=== PATIENT | male | born 1970 | race Caucasian/White ===

== ENCOUNTER 2017-01-28 23:00 | Inpatient (IN) | payer BC, OTHER ==
[~2017-01-28] VITALS: Ht 188 cm; Wt 133.5 kg
[~2017-01-28 23:00] MED LIST: AMOX400S3 PO; ASCAUNK PO; FISHOIL PO; LRTUDL15 PO; ROSU5TAB PO
[2017-01-28] MEDS ORDERED: SODIUM CHLORIDE 0.9% 1000ML 1,000 ML IV STA (23:29)
[2017-01-28] MEDS ORDERED: ONDANSETRON INJ 2 MG/ML 2 ML VIAL IV STA (23:29)
[2017-01-28] MEDS ORDERED: MoRPHine SULFATE 4 MG/ML 1 ML CARP\\VIAL IV STA (23:29)
[2017-01-28] MEDS ORDERED: SODIUM CHLORIDE 0.9% 500ML 500 ML IV STA (23:29)
[2017-01-28] MEDS ORDERED: ALUMINUM/MAGNESIUM SUSP 30 ML UDC PO STA (23:34)
[2017-01-28] MEDS ORDERED: LIDOCAINE HCL 2% VISC SOLN 20 ML UDC PO STA (23:34)
[2017-01-29] VITALS (19 sets, daily range): BP systolic 108–163; BP diastolic 72–92; PULSE 73–95; TEMP 36.4–37.1; O2SAT 95–98; Ht 188 cm; Wt 133.5 kg
[2017-01-29] MEDS ORDERED: ASCO500T16 PO (00:15)
[2017-01-29] MEDS ORDERED: DOXY100C76 PO (00:16)
[2017-01-29 00:30] LABS: BASO % 0.2 %; BASO ABS # 0.02 K/uL (0-0.2); COMPLETE YES; EOS % 1.7 %; HEMATOCRIT 46.4 % (42-52); IG% 0.1 %; LYMPH % 22.1 %; MEAN CELL VOLUME 85.3 fL (80-100); MEAN CORPUSCULAR HGB CONC 34.1 g/dl (32-36); MEAN PLATELET VOLUME 9.6 fL (7.4-10.4); MONO % 5.4 %; NEUT % 70.5 %; PLATELET COUNT 317 K/uL (130-400); RED BLOOD COUNT 5.44 M/uL (4.7-6.1); WHITE BLOOD COUNT 9.96 K/uL (4.8-10.8)
[2017-01-29 00:39] LABS: ALT/SGPT 52 U/L (12-78); AST/SGOT 15 U/L (15-37); BLOOD UREA NITROGEN 10 mg/dl (7-18); CARBON DIOXIDE 26 mmol/L (21-32); CHLORIDE 107 mmol/L (98-107); CREATININE 0.87 mg/dl (0.60-1.40); GLUCOSE 94 mg/dl (70-99); POTASSIUM 3.8 mmol/L (3.5-5.1); SODIUM 138 mmol/L (136-145)
[2017-01-29 00:51] LABS: ALKALINE PHOSPHATASE 74 U/L (45-117)
[2017-01-29] MEDS ORDERED: SODIUM CHLORIDE 0.9% 1000ML 1,000 ML IV STA (01:57)
[2017-01-29] MEDS ORDERED: OPTIRAY 320 IV PRN (02:15)
[2017-01-29] MEDS ORDERED: NITROGLYCERIN 0.4 MG SL PER TAB CHARGE SL STA (03:06)
[2017-01-29] MEDS ORDERED: ASPIRIN 81 MG CHEW PO STA (03:06)
--- NOTE | 2017-01-29 03:20 | History and Physical ---
History & Physical Date & Time of Service: Jan 29, 2017 at 03:20 Chief Complaint: Chest, Back Pain, Gas (Gallbladder Attack??) Primary Care Physician: Keily Marks M.D. (MEDICAL) History of Present Illness Source: patient This is a 46 yo male with medical hx of obesity , THEODORA ( not on CPAP after reconstructive palatal surgery ) , very significant family hx of premature CAD ( father at age 54 , mother had NE at age 56 , in 2010 due to NE / Cardiac arrest , sister had NE s/p PTCA at age 44 ) presents to ED with complain of rt upper quadrant pain radiation to back - symptom associated with food intake pt mentions of having these attacks on and off usually followed by eating fat or greasy food , no nausea gets abdominal pain and bloating , no SOB working , exercise makes symptom better this afternoon he ate [employer]ips -started to experience similar pain , worked in garden for sometime which seems to make him feel better around 10 pm continued to have discomfort , pain and bloating his Sister had similar symptom of indigestion while she was diagnosed of CAD requiring stent pt decided to come to ED for evaluation in the no improvement of symptom with SL nitro IV morphine helped to ease up rt upper quadrant pain lab work in unremarkable including liver function test CTA of chest negative for PE Gall bladder USG -prelim report -no evidence of stone or pericholecystic fluid Social History Smoking Status: Never Smoker Occupational Status: employed Immunizations History of Influenza Vaccine: No History of Tetanus Vaccine?: Yes Tetanus Immunization Date: Apr 23, 2011 History of Pneumococcal: No History of Hepatitis B Vaccine: No Allergies Coded Allergies: No Known Allergies (Unverified , 11/08/11) Home Medications Scheduled Ascorbic Acid (Ascorbic Acid), 1,000 MG PO 3XWK Doxycycline Monohydrate (Monodox), 100 MG PO DAILY Review of Systems Constitutional: No fever, No chills, No sweats, No weight loss, No weakness, No fatigue, No problem reported Respiratory: No cough, No sputum, No wheezing, No shortness of breath, No dyspnea on exertion, No dyspnea at rest, No hemoptysis, No problem reported Cardiovascular: No chest pain, No orthopnea, No PND, No edema, No claudication , No palpitations, No problem reported Abdomen: + problem reported (rt upper quadrant pain worse after eating ) Physical Exam Vital Signs Date Time Temp Pulse Resp B/P (MAP) Pulse Ox O2 Delivery O2 Flow Rate FiO2 01/29/17 02:30 79 18 149/96 95 Room Air 01/29/17 02:05 105 18 134/89 95 Room Air 01/29/17 01:11 87 18 138/86 99 Room Air 01/29/17 01:04 89 01/29/17 00:11 87 18 140/97 95 Room Air 01/28/17 23:42 95 Room Air 01/28/17 23:42 95 Room Air 01/28/17 23:16 37.1 99 18 154/104 96 Room Air General Appearance: no apparent distress Head: normocephalic Eyes: sclerae normal Neck: supple, no JVD, no carotid bruits, trachea midline Respiratory/Chest: chest non-tender, lungs clear, normal breath sounds, no respiratory distress Cardiovascular: regular rate, rhythm, no JVD Abdomen/GI: soft, + pertinent finding (rt upper quadrant dull tenderness, no rebound , not typical eng's point tenderness noted ) Extremities/Musculoskelatal: no calf tenderness, normal capillary refill, no pedal edema Neurologic/Psych: alert, normal mood/affect, oriented x 3 Skin: normal color, warm/dry, no rash Diagnostics Laboratory Results Results Past 24 Hours Test 01/28/17 23:47 Range/Units White Blood Count 9.96 4.8-10.8 K/uL Red Blood Count 5.44 4.7-6.1 M/uL Hemoglobin 15.8 14.0-18.0 g/dL Hematocrit 46.4 42-52 % Mean Corpuscular Volume 85.3 80-100 fL Mean Corpuscular Hemoglobin 29.0 25-34 pg Mean Corpuscular Hemoglobin Concent 34.1 32-36 g/dl Platelet Count 317 130-400 K/uL Mean Platelet Volume 9.6 7.4-10.4 fL Neutrophils (%) (Auto) 70.5 % Lymphocytes (%) (Auto) 22.1 % Monocytes (%) (Auto) 5.4 % Eosinophils (%) (Auto) 1.7 % Basophils (%) (Auto) 0.2 % Neutrophils # (Auto) 7.02 1.4-6.5 K/uL Lymphocytes # (Auto) 2.20 1.2-3.4 K/uL Monocytes # (Auto) 0.54 0.11-0.59 K/uL Eosinophils # (Auto) 0.17 0-0.5 K/uL Basophils # (Auto) 0.02 0-0.2 K/uL RDW Standard Deviation 39.5 36.4-46.3 fL RDW Coefficient of Variation 12.8 11.5-14.5 % Immature Granulocyte % (Auto) 0.1 % Immature Granulocyte # (Auto) 0.01 0.00-0.02 K/uL Sodium Level 138 136-145 mmol/L Potassium Level 3.8 3.5-5.1 mmol/L Chloride Level 107 98-107 mmol/L Carbon Dioxide Level 26 21-32 mmol/L Anion Gap 5.0 3-11 mmol/L Blood Urea Nitrogen 10 7-18 mg/dl Creatinine 0.87 0.60-1.40 mg/dl Est Creatinine Clear Calc Drug Dose 152.3 ml/min Estimated GFR () 121.7 Estimated GFR (Non- 105.0 BUN/Creatinine Ratio 12.0 10-20 Random Glucose 94 70-99 mg/dl Calcium Level 9.0 8.5-10.1 mg/dl Total Bilirubin 0.4 0.2-1 mg/dl Direct Bilirubin < 0.1 0-0.2 mg/dl Aspartate Amino Transf (AST/SGOT) 15 15-37 U/L Alanine Aminotransferase (ALT/SGPT) 52 12-78 U/L Alkaline Phosphatase 74 45-117 U/L Troponin I 0.064 0-0.045 ng/ml Total Protein 7.0 6.4-8.2 gm/dl Albumin 3.6 3.4-5.0 gm/dl Lipase 109 73-393 U/L Diagnostic Radiology CTA OF CHEST : no evidence of Pulmonary embolus , no thoracic aortic dissection or aneurysm .Dependent atelectasis, . There is subpleural pulmonary nodule with the rt upper lobe measuring up to 5 mm USG OF LIVER : The liver is mildly enlarged with increased echogenicity suggestive of hepatic steatosis , the common bile duct is wnl measuring 5.4 mm The gallbladder is unremarkable , The pancreas is within normal limit , the right kidney is unremarkable . EKG EKG normal sinus with in complete RBBB which has unchanged compared to E[facility] Impression Assessment and Plan RIGHT UPPER QUADRANT PAIN : Pt's symptom suggestive /typical of gall bladder colic pain in rt upper quadrant , brought in by fat /greasy food with radiation to back gall bladder USG -unremarkable HIDA scan ordered for AM NPO with ice chips and sips till HIDA scan MILD ELEVATION OF TROPONIN / R/O ACS : very significant family hx of premature CAD ( father at age 54 , mother had NE at age 56 , in 2010 due to NE /Cardiac arrest , sister had NE s/p PTCA at age 44 ) cardiac risk factor : family hx of CAD , obesity , hx of smoking ( quit in 2000 ) presenting symptom more suggestive of gall bladder etiology had Dobutamine cardiac stress test in 12/11/2011 -was negative for stress induced ischemia pt will be monitored in Tele serial cardiac markers /resting echo ordered empirically started on Aspirin 81 mg daily if HIDA is suggestive for cholecystis and pt needs surgery -aspirin can be discontinued HX OF THEODORA: was been follows with Sleep Medicine Dr Markham was prescribed CPAP -was not able to tolerate it well s/p reconstructive surgery -removal of tonsils /adenoids /palatal surgery by ENT Dr Nelson in 2011 not on CPAP at present FULL CODE DVT PROPHYLAXIS : low risk scd and teds ambulate DISPOSITION : expected to be discharged home when medically stable Medicine follow up with Dr Marks Level of Care Telemetry Resuscitation Status FULL RESUSCITATION VTE Prophylaxis VTE Risk Assessment Done? Y/N: Yes Risk Level: Low Given or contraindicated: T.ELatanya Stockings, SCD's Additional Copies To Keily Marks M.D. (MEDICAL)
[2017-01-29] MEDS ORDERED: MoRPHine SULFATE 4 MG/ML 1 ML CARP\\VIAL IV STA (03:24)
[2017-01-29] MEDS ORDERED: ONDANSETRON INJ 2 MG/ML 2 ML VIAL IV PRN (03:30)
[2017-01-29] MEDS ORDERED: POLYETHYLENE (MIRALAX) 17 GM PACK PO PRN (03:30)
[2017-01-29] MEDS ORDERED: NITROGLYCERIN 0.4 MG SL PER TAB CHARGE SL PRN (03:30)
[2017-01-29] MEDS ORDERED: ALUMINUM/MAGNESIUM/SIMETH (MAALOX MAX) 30 ML UDC PO PRN (03:30)
[2017-01-29] MEDS ORDERED: MAGNESIUM HYDROXIDE SUSP 30 ML UDC PO PRN (03:30)
[2017-01-29] MEDS ORDERED: ACETAMINOPHEN 325 MG TAB PO PRN (03:30)
--- NOTE | 2017-01-29 03:30 | EMERGENCY ROOM VISIT NOTE ---
History First contact with patient: 23:26 Chief Complaint: ABDOMINAL PAIN Stated Complaint: CHEST, BACK PAIN, GAS (GALLBLADDER ATTACK??) Nursing Triage Summary: pt c/o right upper abd pain "for a couple days. it's worse after I eat." denies pmh or abd surgeries. denies n/v. pt alert and oriented x4. breathing WNL. History of Present Illness The patient is a 46 year old male who presents to the Emergency Room with complaints of right-sided chest and upper abdominal pain for the past day this been intermittent for a while. Pain currently 3 out of 10. It is okay radiates to the back. Nothing makes it better or worse. Patient has extensive family history of heart disease. Patient's sister mother and father have heart disease and his parents are . No recent stress or echo. Patient denies dyspnea, tobacco use, recent travel, leg pain or swelling, vomiting, diarrhea, diaphoresis. He is tolerating by mouth fluids and food. Review of Systems See HPI for pertinent positives & negatives. A total of 10 systems reviewed and were otherwise negative. Past Medical/Surgical History Medical Problems: (1) Chest pain Corneal problem Social History Smoking Status: Never Smoker Alcohol Use: none Drug Use: none Occupation Status: employed Current/Historical Medications Scheduled Ascorbic Acid (Ascorbic Acid), 1,000 MG PO 3XWK Doxycycline Monohydrate (Monodox), 100 MG PO DAILY Allergies Coded Allergies: No Known Allergies (Unverified , 11/08/11) Physical Exam Vital Signs Date Time Temp Pulse Resp B/P (MAP) Pulse Ox O2 Delivery O2 Flow Rate FiO2 01/29/17 03:17 100 18 144/92 94 Room Air 01/29/17 03:12 106 18 150/102 96 Room Air 01/29/17 02:30 79 18 149/96 95 Room Air 01/29/17 02:05 105 18 134/89 95 Room Air 01/29/17 01:11 87 18 138/86 99 Room Air 01/29/17 01:04 89 01/29/17 00:11 87 18 140/97 95 Room Air 01/28/17 23:42 95 Room Air 01/28/17 23:42 95 Room Air 01/28/17 23:16 37.1 99 18 154/104 96 Room Air Physical Exam VITALS: Vitals are noted on the nurse's note and reviewed by myself. Vital signs hypertensive GENERAL: Pleasant male, in no acute distress, nondiaphoretic, well-developed well-nourished. SKIN: The skin was without rashes, erythema, edema, or bruising. There is no tenting of the skin. Capillary reflex less than 2 seconds. HEAD: Normocephalic atraumatic. EARS: External auditory canals clear, tympanic membranes pearly mckeon without erythema or effusion bilaterally. EYES: Pupils equal round and reactive to light and accommodation. Conjunctivae without injection, sclerae without icterus. Extraocular movements intact. NOSE: Patent, turbinates without inflammation or discharge. MOUTH: Mucous membranes moist. Pharynx without erythema or exudate. Uvula midline. Airway patent. Tongue does not deviate. NECK: Supple without nuchal rigidity. No lymphadenopathy. No thyromegaly. Cervical spine is nontender. No JVD. HEART: Regular rate and rhythm without murmurs gallops or rubs. LUNGS: Clear to auscultation bilaterally without wheezes, rales or rhonchi. No dullness to percussion. No retractions or accessory muscle use. ABDOMEN: Positive bowel sounds x 4. Normal tympanic percussion. Soft, minimally tender epigastric right upper quadrant, no CVA tenderness, without masses or organomegaly. No guarding or rebound tenderness. MUSCULOSKELETAL: No muscle atrophy, erythema, or edema noted. NEURO: Patient was alert and oriented to person place and time. Normal sensation to light and sharp touch. No focal neurological deficits. Medical Decision & Procedures Laboratory Results 01/28/17 23:47 Red Blood Count 5.44, Mean Corpuscular Volume 85.3, Mean Corpuscular Hemoglobin 29.0, Mean Corpuscular Hemoglobin Concent 34.1, Mean Platelet Volume 9.6, Neutrophils (%) (Auto) 70.5, Lymphocytes (%) (Auto) 22.1, Monocytes (%) (Auto) 5.4, Eosinophils (%) (Auto) 1.7, Basophils (%) (Auto) 0.2, Neutrophils # (Auto) 7.02, Lymphocytes # (Auto) 2.20, Monocytes # (Auto) 0.54, Eosinophils # (Auto) 0.17, Basophils # (Auto) 0.02 01/28/17 23:47 Test 01/28/17 23:47 White Blood Count 9.96 K/uL (4.8-10.8) Red Blood Count 5.44 M/uL (4.7-6.1) Hemoglobin 15.8 g/dL (14.0-18.0) Hematocrit 46.4 % (42-52) Mean Corpuscular Volume 85.3 fL (80-100) Mean Corpuscular Hemoglobin 29.0 pg (25-34) Mean Corpuscular Hemoglobin Concent 34.1 g/dl (32-36) Platelet Count 317 K/uL (130-400) Mean Platelet Volume 9.6 fL (7.4-10.4) Neutrophils (%) (Auto) 70.5 % Lymphocytes (%) (Auto) 22.1 % Monocytes (%) (Auto) 5.4 % Eosinophils (%) (Auto) 1.7 % Basophils (%) (Auto) 0.2 % Neutrophils # (Auto) 7.02 K/uL (1.4-6.5) Lymphocytes # (Auto) 2.20 K/uL (1.2-3.4) Monocytes # (Auto) 0.54 K/uL (0.11-0.59) Eosinophils # (Auto) 0.17 K/uL (0-0.5) Basophils # (Auto) 0.02 K/uL (0-0.2) RDW Standard Deviation 39.5 fL (36.4-46.3) RDW Coefficient of Variation 12.8 % (11.5-14.5) Immature Granulocyte % (Auto) 0.1 % Immature Granulocyte # (Auto) 0.01 K/uL (0.00-0.02) Anion Gap 5.0 mmol/L (3-11) Est Creatinine Clear Calc Drug Dose 152.3 ml/min Estimated GFR () 121.7 Estimated GFR (Non- 105.0 BUN/Creatinine Ratio 12.0 (10-20) Calcium Level 9.0 mg/dl (8.5-10.1) Total Bilirubin 0.4 mg/dl (0.2-1) Direct Bilirubin < 0.1 mg/dl (0-0.2) Aspartate Amino Transf (AST/SGOT) 15 U/L (15-37) Alanine Aminotransferase (ALT/SGPT) 52 U/L (12-78) Alkaline Phosphatase 74 U/L (45-117) Troponin I 0.064 ng/ml (0-0.045) Total Protein 7.0 gm/dl (6.4-8.2) Albumin 3.6 gm/dl (3.4-5.0) Lipase 109 U/L (73-393) Medications Administered Medications (Trade) Dose Ordered Sig/Meño Route Start Time Stop Time Status Last Admin Dose Admin Sodium Chloride 500 ml @ 999 mls/hr Q31M STAT IV 01/28/17 23:29 01/28/17 23:59 DC 01/29/17 00:05 999 MLS/HR Sodium Chloride 1,000 ml @ 125 mls/hr Q8H STAT IV 01/28/17 23:29 01/29/17 07:28 01/29/17 03:12 125 MLS/HR Lidocaine HCl (Viscous Lidocaine 2% Soln) 10 ml NOW STAT PO 01/28/17 23:34 01/28/17 23:35 DC 01/29/17 00:04 10 ML Al Hydroxide/Mg Hydroxide (Maalox Susp) 30 ml NOW STAT PO 01/28/17 23:34 01/28/17 23:35 DC 01/29/17 00:03 30 ML Sodium Chloride 1,000 ml @ 999 mls/hr Q1H1M STAT IV 01/29/17 01:57 01/29/17 02:57 DC 01/29/17 02:05 999 MLS/HR Aspirin (Aspirin Chew) 324 mg NOW STAT PO 01/29/17 03:06 01/29/17 03:08 DC 01/29/17 03:13 324 MG Nitroglycerin (Nitrostat Tab) 0.4 mg NOW STAT SL 01/29/17 03:06 01/29/17 03:08 DC 01/29/17 03:12 0.4 MG ED Course Prior records/ancillary studies reviewed. Triage Nursing notes reviewed. The patient's history was concerning for chest pain. Differential diagnosis: Etiologies such as cardiac ischemia, cholecystitis, aortic dissection, pulmonary embolism, pneumonia, pneumothorax, musculoskeletal, infections, pericarditis, myocarditis, esophageal rupture, gastrointestinal, as well as others were entertained. Physical examination: As above. ER treatment provided: GI cocktail, aspirin, Nitro, morphine, IV fluids On reassessment the patient felt better. Diagnostic interpretation by me: The electrocardiogram was normal sinus, normal intervals, incomplete right bundle branch block, no acute ST-T wave changes, rate of 89. Impression incomplete right bundle block interpreted by myself. Repeat EKG is unchanged The labs revealed negative troponin. No leukocytosis Imaging studies: Chest x-ray with no acute consolidation, pneumothorax or free air per my interpretation Ultrasound was negative for cholecystitis per stat radiology CTA was negative for PE per stat radiology Consultation: A consultation was placed with the hospitalist, Dr Serrano. The case was discussed and diagnostics were reviewed. The patient was evaluated in the ER for further treatment. Exam and history seem consistent with chest pain with elevated troponin. Repeat EKG was unchanged. Patient thought his symptoms are related to reflux and I did start off with a GI cocktail this did not help. Patient's been on daily doxycycline for corneal problems by the counter tender. Patient has stress test many years ago that was normal per patient. Nothing recent. He is extensive family history of heart disease. Patient had a negative CTA. Normal ultrasound. He will be evaluated by medicine for cardiac rule out. By the evaluation outlined above emergent etiologies such as aortic dissection , pulmonary embolism, pneumonia, pneumothorax, infections, pericarditis, myocarditis, gastrointestinal, as well as others were deemed relatively unlikely. The pt informed about the findings as listed above. All questions were answered and pleased with the treatment. Case reviewed with my attending Medical Decision As above Impression Primary Impression: Elevated troponin Additional Impression: Precordial chest pain Departure Information Dispostion Being Evaluated By Hospitalist Condition GOOD Referrals Keily Marks M.D. (MEDICAL) (PCP) Patient Instructions My [facility] Problem Qualifiers
[2017-01-29] MEDS ORDERED: IV FLUIDS COMPLETED PRN (04:45)
[2017-01-29] MEDS ORDERED: MoRPHine SULFATE 2 MG/ML CARP IV PRN ×2 (04:45)
[2017-01-29 06:40] LABS: CHOLESTEROL/HDL RATIO 7.4
--- NOTE | 2017-01-29 06:46 | DIAGNOSTIC IMAGING REPORT ---
CHEST ONE VIEW PORTABLE CLINICAL HISTORY: Chest pain. COMPARISON STUDY: Chest radiograph November 08, 2011. FINDINGS: Lung volumes are normal. No pneumothorax or pleural effusion is present. There is no evidence of pulmonary edema. Borderline cardiomegaly is noted. No consolidation is identified to suggest pneumonia. IMPRESSION: 1. No acute cardiopulmonary findings. 2. Borderline cardiomegaly. Electronically signed by: Oleg Urrutia M.D. 01/29/2017 6:45 AM Dictated Date/Time: 01/29/2017 6:43 AM
--- NOTE | 2017-01-29 07:03 | DIAGNOSTIC IMAGING REPORT ---
ABDOMINAL ULTRASOUND, RIGHT UPPER QUADRANT HISTORY: Right upper quadrant abdominal pain. COMPARISON: None. FINDINGS: Increased echogenicity of the liver is consistent with fatty infiltration. There is no biliary ductal dilatation. The gallbladder is normal. No gallstones are identified. The pancreatic body is normal. The head and tail are partially obscured. There is no right hydronephrosis. IMPRESSION: 1. No gallstones or biliary ductal dilatation. 2. Fatty infiltration of the liver. 3. Partially obscured pancreas. Electronically signed by: Oleg Urrutia M.D. 01/29/2017 7:01 AM Dictated Date/Time: 01/29/2017 7:00 AM
--- NOTE | 2017-01-29 07:18 | DIAGNOSTIC IMAGING REPORT ---
(CHEST FOR PE) ANGIO WITH CT DOSE: 770.66 mGy.cm HISTORY: 46 years-old Male presents with acute chest pain and shortness of breath TECHNIQUE: Multiple CTA images of the chest were obtained after the intravenous administration of 92 ml Optiray 320. Coronal and sagittal MIPS were obtained from the axial data set and were submitted for review. A dose lowering technique was utilized adhering to the principles of ALARA. COMPARISON: Portable chest radiograph 01/28/2017. FINDINGS: CTA: There is adequate opacification of the pulmonary arteries to the level of the segmental branches without convincing evidence of acute pulmonary embolism. Subsegmental branches are somewhat sub-visualized secondary to contrast bolus timing. Thoracic aorta is normal in course and caliber without dissection or aneurysm. CT CHEST: No dominant thyroid nodule is seen. No pathologically adenopathy by CT size criteria. There is no pneumothorax, pleural effusion or focal airspace consolidation. 5 mm noncalcified pulmonary nodule abuts the pleura within the superior segment lingula (image 64 of the lung windows series). 6 mm pleural-based noncalcified pulmonary nodule involves the superior segment left lower lobe (seen on image 72 of the lung windows series). 6 mm noncalcified pleural-based pulmonary nodule involves the superior segment right lower lobe and lateral segment right middle lobe. Additional smaller noncalcified nodules are also present. Central airways are patent. There is mild dependent bibasilar atelectasis. Fatty infiltration of the liver is incidentally noted. There is mild bilateral symmetric gynecomastia. The osseous structures appear intact. Multilevel endplate spurring is seen throughout the spine. IMPRESSION: 1. No acute cardiopulmonary process, specifically no acute aortic pathology or evidence of pulmonary thromboembolic disease. 2. Scattered noncalcified pulmonary nodules in the bilateral lungs, most of which are pleural-based are seen measuring up to 6 mm as above. Appropriate follow-up according to the guidelines below recommended. 3. Fatty infiltration of the liver incidentally noted. Please refer to below summary of Fleischner criteria recommendations for follow-up of incidental CT nodules (Marimar Cerna, Guidelines for management of small pulmonary nodules detected on CT scans: A statement from the Fleischner Society, Radiology 237: [phone].) SOLID NODULES Multiple nodules size: <6 mm * Low risk patients: no routine follow-up * high risk patients: optional CT at 12 months Multiple nodules size: 6-8 mm * Low risk patients: follow-up at 3-6 months, then consider further follow-up at 18-24 months * high risk patients: follow-up at 3-6 months, then at 18-24 months if no change Note: newly detected indeterminate nodule in persons 35 years of age or older. * Low risk patients: minimal or absent history of smoking and/or other known risk factors * high risk patients: history of smoking or of other known risk factors (e.g. first degree relative with lung cancer, or exposure to asbestos, radon, uranium) * if a nodule up to 8 mm is partly solid or is ground glass further follow-up is required after 24 months to exclude possible slow growing adenocarcinoma (TAM) The above report was generated using voice recognition software. It may contain grammatical, syntax or spelling errors. Electronically signed by: Kody Trujillo M.D. 01/29/2017 7:16 AM Dictated Date/Time: 01/29/2017 7:08 AM
[2017-01-29] MEDS: ASPIRIN 81 MG ECTAB PO SCH (08:48)
[2017-01-29] MEDS ORDERED: PERFLUTREN LIPID MICROSPHERE (DEFINITY) IV ONE (10:04)
--- NOTE | 2017-01-29 10:26 | Progress Note ---
Subjective Date of Service: Jan 29, 2017. Subjective Pt evaluation today including: conversation w/ patient, physical exam, lab review, review of studies, review of inpatient medication list Saw/examined the patient in room 239 Doing well, no problems/issues to note Pain subsided States the pain was in the RUQ radiating the back, usually after eating certain foods No shortness of breath; no fevers/chills, no palpitations Problem List Medical Problems: (1) Elevated troponin Status: Acute (2) Precordial chest pain Status: Acute Review of Systems Constitutional: No fever, No chills Respiratory: No cough, No sputum, No shortness of breath Cardiac: No chest pain, No edema, No palpitations Abdomen: + pain (RUQ pain), No nausea, No vomiting, No diarrhea, No constipation, No GI bleeding Male : No dysuria, No urinary frequency Heme: No abnormal bleeding/bruising Medications Current Inpatient Medications Medications (Trade) Dose Ordered Sig/Meño Route Start Time Stop Time Status Last Admin Dose Admin Ioversol (Optiray 320) 100 ml UD PRN IV 01/29/17 02:15 02/02/17 02:14 Acetaminophen (Tylenol Tab) 650 mg Q4H PRN PO 01/29/17 03:30 02/28/17 03:29 Al Hydrox/Mg Hydrox/Simethicone (Maalox Max Susp) 15 ml Q4H PRN PO 01/29/17 03:30 02/28/17 03:29 Magnesium Hydroxide (Milk Of Magnesia Susp) 30 ml Q12H PRN PO 01/29/17 03:30 02/28/17 03:29 Ondansetron HCl (Zofran Inj) 4 mg Q6H PRN IV 01/29/17 03:30 02/28/17 03:29 Nitroglycerin (Nitrostat Tab) 0.4 mg UD PRN SL 01/29/17 03:30 02/28/17 03:29 Aspirin (Ecotrin Tab) 81 mg QAM PO 01/29/17 09:00 02/28/17 08:59 Polyethylene (Miralax Powder Packet) 17 gm DAILY PRN PO 01/29/17 03:30 02/28/17 03:29 Miscellaneous (Iv Fluids Completed) 1 ea PRN PRN N/A 01/29/17 04:45 01/29/18 04:44 Morphine Sulfate (MoRPHine SULFATE INJ) 1 mg Q4 PRN IV 01/29/17 04:45 02/12/17 04:44 Morphine Sulfate (MoRPHine SULFATE INJ) 2 mg Q4 PRN IV 01/29/17 04:45 02/12/17 04:44 Objective Vital Signs Date Time Temp Pulse Resp B/P (MAP) Pulse Ox O2 Delivery O2 Flow Rate FiO2 01/29/17 08:00 96 Room Air 01/29/17 07:24 37.1 86 18 143/90 (107) 97 Room Air 01/29/17 04:09 36.9 92 18 128/76 95 Room Air 01/29/17 03:55 91 18 132/84 96 01/29/17 03:17 100 18 144/92 94 Room Air 01/29/17 03:12 106 18 150/102 96 Room Air 01/29/17 02:30 79 18 149/96 95 Room Air 01/29/17 02:05 105 18 134/89 95 Room Air 01/29/17 01:11 87 18 138/86 99 Room Air 01/29/17 01:04 89 01/29/17 00:11 87 18 140/97 95 Room Air 01/28/17 23:42 95 Room Air 01/28/17 23:42 95 Room Air 01/28/17 23:16 37.1 99 18 154/104 96 Room Air Physical Exam General Appearance: no apparent distress, + obese Respiratory/Chest: chest non-tender, lungs clear, normal breath sounds, no respiratory distress, no accessory muscle use Cardiovascular: regular rate, rhythm, no edema, no murmur Abdomen: normal bowel sounds, non tender, soft Extremities: normal inspection, no pedal edema Laboratory Results Last 24 Hours Test 01/28/17 23:47 01/29/17 05:46 01/29/17 09:18 01/29/17 09:36 White Blood Count 9.96 K/uL Red Blood Count 5.44 M/uL Hemoglobin 15.8 g/dL Hematocrit 46.4 % Mean Corpuscular Volume 85.3 fL Mean Corpuscular Hemoglobin 29.0 pg Mean Corpuscular Hemoglobin Concent 34.1 g/dl Platelet Count 317 K/uL Mean Platelet Volume 9.6 fL Neutrophils (%) (Auto) 70.5 % Lymphocytes (%) (Auto) 22.1 % Monocytes (%) (Auto) 5.4 % Eosinophils (%) (Auto) 1.7 % Basophils (%) (Auto) 0.2 % Neutrophils # (Auto) 7.02 K/uL Lymphocytes # (Auto) 2.20 K/uL Monocytes # (Auto) 0.54 K/uL Eosinophils # (Auto) 0.17 K/uL Basophils # (Auto) 0.02 K/uL RDW Standard Deviation 39.5 fL RDW Coefficient of Variation 12.8 % Immature Granulocyte % (Auto) 0.1 % Immature Granulocyte # (Auto) 0.01 K/uL Sodium Level 138 mmol/L Potassium Level 3.8 mmol/L Chloride Level 107 mmol/L Carbon Dioxide Level 26 mmol/L Anion Gap 5.0 mmol/L Blood Urea Nitrogen 10 mg/dl Creatinine 0.87 mg/dl Est Creatinine Clear Calc Drug Dose 152.3 ml/min Estimated GFR () 121.7 Estimated GFR (Non- 105.0 BUN/Creatinine Ratio 12.0 Random Glucose 94 mg/dl Calcium Level 9.0 mg/dl Total Bilirubin 0.4 mg/dl Direct Bilirubin < 0.1 mg/dl Aspartate Amino Transf (AST/SGOT) 15 U/L Alanine Aminotransferase (ALT/SGPT) 52 U/L Alkaline Phosphatase 74 U/L Troponin I 0.064 ng/ml Total Protein 7.0 gm/dl Albumin 3.6 gm/dl Lipase 109 U/L Triglycerides Level 194 mg/dl Cholesterol Level 178 mg/dl HDL Cholesterol 24 mg/dl LDL Cholesterol, Calculated 115 mg/dl VLDL Cholesterol, Calculated 39 mg/dl Cholesterol/HDL Ratio 7.4 Creatine Kinase MB Ratio Assessment and Plan This is a 46 year old obese male with no significant PMH presents with RUQ abdominal pain vs. lower chest pain RUQ abdominal pain Chest Pain r/o ACS possibly related to gallbladder disease? pain is worse with certain fatty foods RUQ unremarkable will obtain a HIDA scan r/o ACS due to possible chest pain echo results pending initial cardiac enzyme mild bump noted at 0.064, two sets pending risk factors include obesity and family history likely outpatient stress DVT ppx ambulation FULL CODE
[2017-01-29 10:30] LABS: CKMB/CK RATIO 10.1 (0-3.0)
[2017-01-29] MEDS ORDERED: HEPARIN 25,000 UNIT/500ML D5W 500 ML IV PRN (11:15)
[2017-01-29] MEDS ORDERED: HEPARIN IV BOLUS 8,000 UNIT in SYRINGE 0 ML IV ONE (11:15)
[2017-01-29] MEDS ORDERED: FENTANYL CITRATE INJ 50 MCG/1 ML 2 ML VIAL ONE ×2 (11:27→13:12)
[2017-01-29] MEDS ORDERED: HEPARIN SOD (PORCINE) 1000 UNIT/ML 10 ML VIAL ONE ×2 (11:27→13:41)
[2017-01-29] MEDS ORDERED: NiCARDipine HCL INJ 2.5 MG/ML 10 ML AMP ONE (11:27)
[2017-01-29] MEDS ORDERED: MIDAZOLAM HCL 1 MG/ML 2ML VIAL ONE ×2 (11:27→12:40)
[2017-01-29] MEDS ORDERED: NITROGLYCERIN/D5W 100MCG/ML 20ML SYR ONE (11:28)
--- NOTE | 2017-01-29 11:59 | CARDIOLOGY CONSULTATION ---
DATE OF CONSULTATION: 01/29/2017 DATE OF CONSULTATION: 01/29/2017 REFERRING PHYSICIAN: Dr. Randy Berry. REASON FOR CONSULTATION: NSTEMI, nonsustained ventricular tachycardia. HISTORY OF PRESENT ILLNESS: Mr. Becerra is a 46-year-old gentleman who presented to the Emergency Department with chest discomfort. The patient had his first episode of chest discomfort on Thursday. The pain was mild and short lived at that time. The pain is primarily right-sided and described as a dull ache. Worse severity was 3/10. Reports recurrent episode of atrial fibrillation last night after dinner. He went out to his yard and did some work. States the pain slowly resolved. He went to sleep and noted recurrent right-sided chest discomfort and generalized feeling of being uncomfortable. No associated shortness of breath or diaphoresis. No nausea or vomiting. He came to the Emergency Department for further evaluation approximately 11:00 p.m. His initial troponin was 0.064, repeat troponin performed at 9:00 a.m. was 1.420 with an elevated CK-MB of 21.5. Telemetry demonstrated a 4 beat diane of nonsustained ventricular tachycardia as well as a brief 5 beat run of accelerated idioventricular rhythm. The patient was asymptomatic during these dysrhythmias. No lightheadedness, dizziness, syncope or near syncope. The patient was seen and examined at the bedside. He is currently comfortable. He received 1 sublingual nitroglycerin and his pain decreased from 1/10 down to 0/10. A resting 2D transthoracic echo was reviewed. The preliminary findings suggest posterior lateral hypokinesis. The patient reports a significant family history of premature coronary disease as listed below. Offers no other complaints currently. REVIEW OF SYSTEMS: The pertinent positive noted above, a comprehensive 10-system review is otherwise negative. PAST MEDICAL HISTORY: 1. Chronic ocular keratitis. 2. Denies history of hypertension, dyslipidemia, coronary disease, rheumatic fever as a child, or diabetes. PAST SURGICAL HISTORY: Denied. FAMILY HISTORY: Sister with coronary disease in her 40s, father with premature CAD as well. ECG ON ADMISSION: Normal sinus rhythm with an incomplete right bundle branch block, no ischemic changes. Repeat ECG performed at the bedside this morning is unchanged. CTA of the chest was performed at 1:57 a.m. demonstrating no aortic pathology or pulmonary thromboembolic disease, pulmonary nodules noted, fatty liver infiltration. Chest x-ray demonstrates no acute cardiopulmonary findings or borderline cardiomegaly. Ultrasound of the gallbladder demonstrates no gallstones or biliary duct dilatation. LABORATORY DATA: Initial troponin 0.064, repeat troponin 1.420. Sodium 138, potassium 3.8, chloride 107, CO2 is 26, BUN is 10, creatinine is 0.87. AST is 15, ALT is 52. Triglycerides 194, total cholesterol 178, LDL 115, HDL 24, lipase 109. White blood cell count 9.96, hemoglobin is 15.8, platelet count is 317. PHYSICAL EXAMINATION: VITAL SIGNS: Temperature is 37.1 degrees centigrade, pulse 86 beats per minute and regular, respiratory rate is 18 breaths per minute, blood pressure 143/90. SAO2 96% on room air. GENERAL: NAD, awake, alert and oriented x3. Well nourished, healthy appearing. HEAD, EYES, EARS, NOSE, AND THROAT: His mucous membranes are moist. No scleral icterus. Conjunctivae pink. NECK: Supple. There is no JVD, no HJR, no carotid bruit. HEART: Regular with a normal S1 and S2. There is no murmur, rub, or gallop. LUNGS: Clear without rales, rhonchi or wheeze. ABDOMEN: Soft, nontender. No rebound or guarding. Normal bowel sounds. EXTREMITIES: Warm and dry. There is no clubbing, cyanosis, or edema. Femoral pulses are palpable bilaterally. Posterior tibial pulses are palpable bilaterally. The radial pulses normal in the right upper extremity with a palpable ulnar pulse. NEUROLOGIC EXAMINATION: Demonstrates no focal motor deficit. FINAL IMPRESSION: 1. [id number] elevation myocardial infarction with posterior hypokinesis and preserved LV systolic function. 2. Family history of premature coronary artery disease. 3. Elevated blood pressure without diagnosis of hypertension. 4. Dyslipidemia with markedly low HDL cholesterol as noted above. PLAN AND RECOMMENDATIONS: Aggressive medical therapy will be initiated for NSTEMI including intravenous heparin, oral metoprolol, aspirin, high dose statin therapy. The risks, benefits and alternatives to cardiac catheterization were discussed with patient at length. He is agreeable to procedure at [facility] with possible stent implantation if indicated. All questions were answered to his satisfaction. If patient becomes unstable he will be taken urgently to the catheterization lab for procedure. We will continue to follow closely during hospitalization. Thank you for allowing me to take part in the care of your patient. Please note 35 minutes critical care time was spent in evaluation with the patient, according plan of care, scheduling procedure, and discussion with consultants.
[2017-01-29] MEDS ORDERED: ATORVASTATIN 40 MG TAB PO ONE (12:00)
[2017-01-29] MEDS ORDERED: METOPROLOL TARTRATE 25 MG TAB PO ONE (12:00)
--- NOTE | 2017-01-29 12:45 | Procedure Note ---
Pre-Mod Sedation Assessment General Date of Moderate Sedation: Jan 29, 2017. Vital Signs: Vital Signs Past 12 Hours Date Time Temp Pulse Resp B/P (MAP) Pulse Ox O2 Delivery O2 Flow Rate FiO2 01/29/17 12:00 96 Room Air 01/29/17 11:38 36.9 95 20 149/88 (108) 98 Room Air 01/29/17 08:00 96 Room Air 01/29/17 07:24 37.1 86 18 143/90 (107) 97 Room Air 01/29/17 04:09 36.9 92 18 128/76 95 Room Air 01/29/17 03:55 91 18 132/84 96 01/29/17 03:17 100 18 144/92 94 Room Air 01/29/17 03:12 106 18 150/102 96 Room Air 01/29/17 02:30 79 18 149/96 95 Room Air 01/29/17 02:05 105 18 134/89 95 Room Air 01/29/17 01:11 87 18 138/86 99 Room Air 01/29/17 01:04 89 Review Cardiovascular: regular rate, rhythm, no edema, no murmur, normal peripheral pulses Abdomen: normal bowel sounds, non tender, soft, no organomegaly Lungs: chest non-tender, lungs clear, normal breath sounds Pre-Sedation Airway Assessment Oral Cavity: WNL Smoking Status: Former Smoker Mallampati Classification: Class III ASA Classification: Class IV Procedure Planning Contraindications-for Mod Sed: None Yes Notes The planned sedation has been discussed with the patient and consent obtained. I have identified the patient, determined the appropriateness of sedation and have assessed the patient immediately prior to the procedure. All medicine(s) and interventions are by my order.
--- NOTE | 2017-01-29 12:47 | Procedure Note ---
Post-Mod Sedation Assessment General Date of Moderate Sedation Jan 29, 2017. Vital Signs: Vital Signs Past 12 Hours Date Time Temp Pulse Resp B/P (MAP) Pulse Ox O2 Delivery O2 Flow Rate FiO2 01/29/17 12:00 96 Room Air 01/29/17 11:38 36.9 95 20 149/88 (108) 98 Room Air 01/29/17 08:00 96 Room Air 01/29/17 07:24 37.1 86 18 143/90 (107) 97 Room Air 01/29/17 04:09 36.9 92 18 128/76 95 Room Air 01/29/17 03:55 91 18 132/84 96 01/29/17 03:17 100 18 144/92 94 Room Air 01/29/17 03:12 106 18 150/102 96 Room Air 01/29/17 02:30 79 18 149/96 95 Room Air 01/29/17 02:05 105 18 134/89 95 Room Air 01/29/17 01:11 87 18 138/86 99 Room Air 01/29/17 01:04 89 Review - Discharge Criteria Vital Signs Stable: Yes Alert/Oriented/Conversant: Yes Returned to Baseline Mental St: Yes Nausea Absent/Minimal: Yes Pain/Discomfort/Absent/Minimal: Yes Normal/Baseline Respirations: Yes Pt Received D/C Instructions: N/A Prescriptions Given: None Specific Proced. D/C Criteria Distal Pulses Present (Cardiac: Yes Groin site assessed-Card Cath: N/A Voided Prior To Discharge: N/A Discharged Patients Adult Escort/Transportation: N/A
--- NOTE | 2017-01-29 13:01 | Cardiac Catheterization ---
Procedure Note Procedure Date Jan 29, 2017. Pre-Procedure Diagnosis Non STEMI AUC Score 9 Post-Procedure Diagnosis Severe CAD Procedure(s) Performed Coronary Angiography, Left Heart Cath Manager Wind Dr. Singh Metal Tank Builder(s) Gayatri SERVER SUPPORT TECHNICIAN Estimated Blood Loss 5cc Medication(s) Fentanyl, Heparin (8000 units given on PCU prior to procedure), Nicardipine, Nitroglycerin, Versed, Lidocaine 1% Summary of Findings 90% mid LAD 99% mid Lcx Hemodynamics Rest Ao: 108/81/93 Final Ao: 110/72/89 LV: 110/3/14 Recommendations PCI without planned CABG Specimens None Radiation Exposure (mGy) 1712 Contrast (mls) 55 Anesthesia Moderate sedation. Start 1211. End 1237. Sedation RN: Florencia Mohan Procedural Complication(s) None Disposition labor and employment paralegal for PCI ACC Data Cardiac Status Clinical evaluation leading to the procedure CAD Presntation: Non STEMI Anginal Classification: CCS IV Heart Failure: No Cardiogenic Shock w/in 24Hrs: No Cardiac Arrest w/in 24Hrs: No Imaging studies past 6 months: No Stress studies past 6 months: No Coronary Anatomy Dominant: Right Left Main (% Stenosis): Normal LAD (% Stenosis): Proximal (10%), Mid (90%), Distal (10%) D1 (% Stenosis): Proximal (10%) Circumflex (% Stenosis): Mid (99% at bifurcation of Lcx and large LPL), Distal (Continues as a small AV groove vessel.) L PL1 (% Stenosis): Proximal (40%), Mid (Two small (1mm) marginal branches arising from mid LPL, Mild luminal irregularities, 10%) RCA (% Stenosis): Proximal (10%), Mid (40%), Distal (20%) R PDA (% Stenosis): Ostial (20%) R PL1 (% Stenosis): Normal Ramus (% Stenosis): Normal (Large vessel) Closure Device Percutaneous Entry Location: Radial Closure Device: Radial Band Recommendations: PCI without planned CABG Intraprocedure Events Significant Dissection: No Perforation: No
--- NOTE | 2017-01-29 13:32 | ECHOCARDIOGRAM REPORT ---
*NOTICE TO RECEIVING CONSTITUTION PARTY AGENCY This information is strictly Confidential and protected under [place] law. [place] law prohibits you from making any further disclosure of this information unless further disclosure is expressly permitted by the written consent of the person to whom it pertains or is authorized by law. A general authorization for the release of medical or other information is not sufficient for this purpose. Hospital accepts no responsibility if the information is made available to any other person, INCLUDING THE PATIENT. Interpretation Summary * Name: ROSALIO REAVES V Study Date: 01/29/2017 09:08 AM BP: 128/76 mmHg * Patient Location: C.2T\S\S239\S\2 HR: 89 * : 1970 (M/d/yyyy) Gender: Male Height: 74 in * Age: 46 yrs Ethnicity: CA Weight: 275 lb * Ordering Physician: Malu Serrano * Referring Physician: Self, Referred * Performed By: Mary Mcneill RCS * * Reason For Study: Chest pain * BSA: 2.5 m2 * The study was technically adequate. * There is no comparison study available. * -- Conclusions -- * Ejection Fraction = 55-60%. * There is mild concentric left ventricular hypertrophy. * The base and mid posterior wall is severely hypokinetic. * Grade I diastolic dysfunction, (abnormal relaxation pattern). * No significant valvular pathology. Procedure Details * A contrast injection of Definity was performed to improve assessment of LV function. * Contrast was injected into an intravenous site in the left arm. * One vial of Definity ultrasound contrast was diluted in normal saline to a total volume of 10 ml. A total of '4' ml of solution was administered during imaging. * Lot # [id number] of Definity utilized for procedure. * Expiration date [id number]. * The attending nurse who injected the contrast agent was Zeenat Cortes RN. * A complete two-dimensional transthoracic echocardiogram was performed (2D, M-mode, Doppler and color flow Doppler). Left Ventricle * The left ventricle is normal in size. * There is no thrombus. * There is mild concentric left ventricular hypertrophy. * Ejection Fraction = 55-60%. * Left ventricular systolic function is normal. * The base and mid posterior wall is severely hypokinetic. Right Ventricle * The right ventricle is normal size. * The right ventricular systolic function is normal as assessed by tricuspid annular plane systolic excursion (TAPSE) (normal >1.5 cm). Atria * The left atrial size is normal. * Right atrial size is normal. * There is no evidence of atrial septal defect, but resolution does not allow assessment for a patent foramen ovale. Mitral Valve * The mitral valve is normal. * There is no mitral valve stenosis. * Significant mitral regurgitation is absent. Tricuspid Valve * The tricuspid valve is normal. * There is no tricuspid stenosis. * Significant tricuspid regurgitation is absent. Aortic Valve * The aortic valve is not well visualized. * Aortic stenosis is absent. * There is no significant aortic regurgitation. Pulmonic Valve * The pulmonary valve is not well seen, but the Doppler examination is normal without significant regurgitation or stenosis. Great Vessels * The aortic root is normal size. Pericardium/Pleural * There is no pericardial effusion. Great Vessels * IVC not visualized. Left Ventricular Diastolic Function * Grade I diastolic dysfunction, (abnormal relaxation pattern). MMode 2D Measurements and Calculations IVSd 1.4 cm LVIDd 4.0 cm LVIDs 2.7 cm LVPWd 1.4 cm IVS/LVPW 0.99 FS 31.0 % EDV(Teich) 68.9 ml ESV(Teich) 28.1 ml EF(Teich) 59.2 % EDV(cubed) 62.7 ml ESV(cubed) 20.6 ml EF(cubed) 67.1 % LV mass(C)d 201.4 grams LV mass(C)dI 80.9 grams/m\S\2 SV(Teich) 40.8 ml SI(Teich) 16.4 ml/m\S\2 SV(cubed) 42.1 ml SI(cubed) 16.9 ml/m\S\2 Ao root diam 3.7 cm Ao root area 11.0 cm\S\2 LVOT diam 2.0 cm LVOT area 3.1 cm\S\2 LVAd ap4 38.4 cm\S\2 LVLd ap4 9.3 cm EDV(MOD-sp4) 129.7 ml EDV(sp4-el) 134.3 ml LVAs ap4 18.2 cm\S\2 LVLs ap4 6.7 cm ESV(MOD-sp4) 41.0 ml ESV(sp4-el) 42.1 ml EF(MOD-sp4) 68.4 % EF(sp4-el) 68.6 % LVAd ap2 36.7 cm\S\2 LVLd ap2 8.5 cm EDV(MOD-sp2) 130.5 ml EDV(sp2-el) 134.2 ml LVAs ap2 17.2 cm\S\2 LVLs ap2 6.9 cm ESV(MOD-sp2) 35.1 ml ESV(sp2-el) 36.2 ml EF(MOD-sp2) 73.1 % EF(sp2-el) 73.0 % LVLd %diff -9.46 % EDV(MOD-bp) 135.3 ml LVLs %diff 3.1 % ESV(MOD-bp) 38.2 ml EF(MOD-bp) 71.8 % SV(MOD-sp4) 88.7 ml SI(MOD-sp4) 35.6 ml/m\S\2 SV(MOD-sp2) 95.3 ml SI(MOD-sp2) 38.3 ml/m\S\2 SV(MOD-bp) 97.1 ml SI(MOD-bp) 39.0 ml/m\S\2 SV(sp4-el) 92.2 ml SI(sp4-el) 37.0 ml/m\S\2 SV(sp2-el) 98.0 ml SI(sp2-el) 39.4 ml/m\S\2 Doppler Measurements and Calculations MV E max el 72.2 cm/sec MV A max el 76.0 cm/sec MV E/A 0.95 MV dec time 0.10 sec Ao V2 max 148.3 cm/sec Ao max PG 8.8 mmHg Ao max PG (full) 4.8 mmHg GHAZAL(V,A) 2.1 cm\S\2 GHAZAL(V,D) 2.1 cm\S\2 LV V1 max PG 4.0 mmHg LV V1 max 100.5 cm/sec
[2017-01-29] MEDS ORDERED: CLOPIDOGREL BISULFATE 300 MG TAB PO ONE (13:42)
--- NOTE | 2017-01-29 14:01 | Cardiac Catheterization ---
Procedure Note Procedure Date Jan 29, 2017. Pre-Procedure Diagnosis Non STEMI AUC Score 8 Post-Procedure Diagnosis Severe CAD Procedure(s) Performed Drug Eluting Stent Orchestrator Ronaldo Global Account Executive(s) Gayatri Estimated Blood Loss 18 Medication(s) Clopidogrel, Fentanyl, Heparin, Nitroglycerin, Versed, Lidocaine 1% Summary of Findings Indication: NSTEMI Access: 6Fr Right Radial Artery Catheters: EBU 3.5 guide Findings: For full details of patients coronary angiography see cath report dictated by Dr. Singh. Briefly, patient found to have a 95% mid circumflex lesion and 80% mid LAD stenosis. -- PCI -- Antithrombotic therapy: Heparin, Clopidogrel Procedure: LM cannulated with EBU3.5 guide BMW wire passed across mid circumflex lesion into distal vessel Circumflex lesion predilated with 3.0 compliant balloon Dilated lesion stented with 3.5 x 30 Kilo Resolute DANA Stent post-dilated with 4.0 noncompliant balloon BMW wire removed and placed in distal LAD across mid segment stenosis Prowater wire placed into 1st diagonal Mid LAD lesion predilated with 3.0 compliant balloon. Dilated lesion stented with 3.5 x 22 Crowley Resolute DANA Stent post-dilated with 4.0 NC balloon IC vasodilators administered for spasm Post procedure CHESTER 3 flow, stent well expanded with minimal residual stenosis and no apparent cardiac complications. Arterial Closure: TR Band Summary: 1. Successful PCI of mid circumflex with one DANA (3.5 x 30 Kilo, post-dilated to 4.0) 2. Successful PCI of mid LAD with one DANA (3.5 x 22 Kilo, post-dilated to 4.0) Recommendations: To PCU for continued monitoring Loaded with Clopidogrel Continue dual-antiplatelet therapy with ASA/Clopidogrel for 1 year Continue statin, ASCVD risk factor modification per Dr. Singh Consult cardiac Rehab Hemodynamics Rest Ao: 110/72/89 Final Ao: 110/77/93 LV: -- Recommendations PCI without planned CABG Specimens None Radiation Exposure (mGy) 5930 Contrast (mls) 260 Opti Fluids (cc crystalloids) 115 NS Drains None Anesthesia Moderate Procedural Complication(s) None Disposition PCU ACC Data Cardiac Status Clinical evaluation leading to the procedure CAD Presntation: Non STEMI Anginal Classification: CCS III Heart Failure: No, NYHA Class: CCS I Cardiogenic Shock w/in 24Hrs: No Cardiac Arrest w/in 24Hrs: No Imaging studies past 6 months: Yes Stress studies past 6 months: No Diagnostic Physician's Name: Jorge Singh DO Status: Urgent Closure Device Percutaneous Entry Location: Radial Closure Device: Radial Band Recommendations: PCI without planned CABG PCI Indication: PCI for high risk Non-STEMI Lesion Segment Name: Mid Circumflex Culprit Artery: Yes Stenosis Prior to Rx (%): 95 Chronic Total Occlusion: No IVUS: No FFR: No Pre-Procedure CHESTER Flow: 3 Previously Treated Lesion: No Lesion Complexity: Non-High/Non-C Lesion Length (mm): 25 Thrombus Present: Yes Bifurcation Lesion: No Guidewire Across Lesion: Yes Guidewire: Stenosis Post-Procedure (%): 0 Post-Procedure CHESTER Flow: 3 Device(s) Deployed: Yes Lesion #2 Segment Name: Mid LAD Culprit Artery: No Stenosis Prior to Rx (%): 80-90 Chronic Total Occlusion: No IVUS: No FFR: No Pre-Procedure CHETSER Flow: 3 Previously Treated Lesion: No Lesion Complexity: Non-High/Non-C Lesion Length (mm): 15 Thrombus Present: No Bifurcation Lesion: Yes Guidewire Across Lesion: Yes Guidewire: Stenosis Post-Procedure (%): 0 Post-Procedure CHESTER Flow: 3 Device(s) Deployed: Yes Intraprocedure Events Significant Dissection: No Perforation: No
[2017-01-29] MEDS ORDERED: SODIUM CHLORIDE 0.9% 1000ML 1,000 ML IV SCH (14:15)
[2017-01-29] MEDS: METOPROLOL TARTRATE 25 MG TAB PO SCH (20:47)
[2017-01-30 03:15] VITALS: BP 131/83; PULSE 84; TEMP 36.5; O2SAT 97
[2017-01-30 06:31] LABS: BASO % 0.2 %; BASO ABS # 0.02 K/uL (0-0.2); COMPLETE YES; EOS % 0.8 %; HEMATOCRIT 42.3 % (42-52); IG% 0.2 %; LYMPH % 22.2 %; LYMPH ABS # 2.03 K/uL (1.2-3.4); MEAN CELL VOLUME 86.2 fL (80-100); MEAN CORPUSCULAR HEMOGLOBIN 29.9 pg (25-34); MEAN CORPUSCULAR HGB CONC 34.8 g/dl (32-36); MEAN PLATELET VOLUME 9.3 fL (7.4-10.4); MONO % 6.6 %; PLATELET COUNT 281 K/uL (130-400); RED BLOOD COUNT 4.91 M/uL (4.7-6.1); WHITE BLOOD COUNT 9.16 K/uL (4.8-10.8)
[2017-01-30 07:04] LABS: BUN/CREATININE RATIO 10.5 (10-20); CALCIUM 8.8 mg/dl (8.5-10.1); CREATININE 0.95 mg/dl (0.60-1.40); POTASSIUM 3.9 mmol/L (3.5-5.1)
[2017-01-30 07:39] VITALS: BP 130/88; PULSE 89; TEMP 37; O2SAT 95
[2017-01-30] MEDS: ASPIRIN 81 MG ECTAB PO SCH (08:50)
[2017-01-30] MEDS: METOPROLOL TARTRATE 25 MG TAB PO SCH (08:50)
[2017-01-30] MEDS ORDERED: CLOPIDOGREL BISULFATE 75 MG TAB PO SCH (09:00)
[2017-01-30] MEDS ORDERED: ATORVASTATIN 40 MG TAB PO SCH (09:00)
[2017-01-30] MEDS ORDERED: METOPROLOL SUCC 25MG EXT REL TAB PO ONE (11:04)
--- NOTE | 2017-01-30 11:13 | Cardiology Follow-Up ---
Subjective General Date of Service: Jan 30, 2017. Pt evaluation today including: conversation w/ patient, physical exam, chart review, lab review, review of studies, review of inpatient medication list History of Present Illness The patient is a 46 year old male seen in follow-up. No recurrent chest discomfort overnight. Tolerating medications. Requesting discharge as soon as possible. Offers no other complaints this time. Allergies Coded Allergies: No Known Allergies (Unverified , 11/08/11) Social History Smoking Status: Former Smoker Hx Tobacco Use In Past Year?: No Hx Alcohol Use - Type And Amou: Yes (case a beer per week-end) Hx Substance Use - Type And Am: No Problem List Medical Problems: (1) Elevated troponin Status: Acute (2) Precordial chest pain Status: Acute Review of Systems Respiratory: No cough, No wheezing, No shortness of breath, No dyspnea at rest , No hemoptysis Cardiac: No chest pain, No edema, No palpitations Physical Exam Vital Signs Last Vital Signs Documentation Date Time Temp Pulse Resp B/P (MAP) Pulse Ox O2 Delivery O2 Flow Rate FiO2 01/30/17 08:00 Room Air 01/30/17 07:39 37.0 89 20 130/88 (102) 95 01/29/17 13:40 3 Physical Exam Constitutional: General Apperance: well-nourished Level of Distress: NAD Ambulation: ambulating normally Head: normocephalic, atraumatic ENMT: normal ENT inspection Neck: supple, trachea midline Lungs: Auscultation: breath sounds normal, no wheezing, no rales/crackles, no rhonchi Cardiovascular: Heart Auscultation: RRR, normal S1, normal S2, no murmurs Peripheral Pulses: Radial Pulse: normal on the left, normal on the right, pertinent finding ( No ecchymosis or hematoma of right wrist) Extremities: no cyanosis, no edema, no clubbing, no ulcers Neurologic: Gait & Station: pertinent finding (No focal motor deficit) Cranial Nerves: grossly intact Assessment and Plan Assessment and Plan FINAL IMPRESSION: 1. [id number] elevation myocardial infarction s.p DANA to Lcx and LAD. - Moderate residual ostial CAR WRECKER disease 2. Family history of premature coronary artery disease. 3. Elevated blood pressure without diagnosis of hypertension. 4. Dyslipidemia with markedly low HDL cholesterol as noted above. PLAN AND RECOMMENDATIONS: Discussed importance of continuing Plavix for a minimum of 1 year uninterrupted and aspirin lifelong. Other cardiovascular medications including high-dose statin and beta jake therapy will be continued as well. Metoprolol tartrate will be transitioned to Toprol-XL 25 mg daily. Plan repeat resting 2-D transthoracic echo in 6-12 weeks to assess wall motion. Recommend cardiac rehabilitation. Patient wishes to discuss further with his . Will readdress at follow-up appointment in 1-2 weeks. All questions answered to the satisfaction of the patient and his . Post cardiac catheterization activity restrictions listed below. Patient may be discharged from a cardiovascular perspective today. ACTIVITY RECOMMENDATIONS: It is common to feel weak and fatigue for a few days. * Do not drive or operate any motorized equipment for the next three days. * Limit stair usage (2 or 3 trips a day only) for the next three days. * Do not lift anything heavier than 10 pounds for the next three days. * Do not engage in vigorous exercise or any sports for the next five days. * You may shower the day after your procedure, but do not immerse the area for three days. Cleanse the site gently with soap and water. SPECIAL CARE INSTRUCTIONS: * You may replace the pressure dressing or band-aid the morning after the procedure. * After your procedure, it is normal to have a small bruise or small lump at the site. Examine your site daily for any change in the bruise or lump, redness, swelling, drainage or numbness. Notify your doctor if any change. BLEEDING: * If there is a small amount of bleeding at the site, lie down and apply firm pressure with a clean cloth for ten minutes. When the bleeding stops, lie quietly keeping the procedure limb straight for six hours. Notify your doctor as soon as possible. * If the bleeding does not stop after ten minutes or if there is a large amount of bleeding or spurting, call 911 immediately. Continue to lie down and hold firm pressure until help arrives. SKIN IRRITATION: * You may experience some redness and/or swelling in the area where radiation was administered. If any skin irritation occurs, please contact your family physician. FOLLOW UP VISIT: Dr. Singh as scheduled Laboratory Results Last 24 Hours Test 01/29/17 12:32 01/29/17 12:50 01/29/17 13:12 01/29/17 18:22 Kaolin Activated Coagulation Time 114 SECONDS 202 SECONDS 208 SECONDS Activated Partial Thromboplast Time 26.6 SECONDS Partial Thromboplastin Ratio 1.0 Test 01/30/17 06:20 White Blood Count 9.16 K/uL Red Blood Count 4.91 M/uL Hemoglobin 14.7 g/dL Hematocrit 42.3 % Mean Corpuscular Volume 86.2 fL Mean Corpuscular Hemoglobin 29.9 pg Mean Corpuscular Hemoglobin Concent 34.8 g/dl Platelet Count 281 K/uL Mean Platelet Volume 9.3 fL Neutrophils (%) (Auto) 70.0 % Lymphocytes (%) (Auto) 22.2 % Monocytes (%) (Auto) 6.6 % Eosinophils (%) (Auto) 0.8 % Basophils (%) (Auto) 0.2 % Neutrophils # (Auto) 6.42 K/uL Lymphocytes # (Auto) 2.03 K/uL Monocytes # (Auto) 0.60 K/uL Eosinophils # (Auto) 0.07 K/uL Basophils # (Auto) 0.02 K/uL RDW Standard Deviation 41.0 fL RDW Coefficient of Variation 13.0 % Immature Granulocyte % (Auto) 0.2 % Immature Granulocyte # (Auto) 0.02 K/uL Activated Partial Thromboplast Time 27.0 SECONDS Partial Thromboplastin Ratio 1.0 Sodium Level 139 mmol/L Potassium Level 3.9 mmol/L Chloride Level 108 mmol/L Carbon Dioxide Level 27 mmol/L Anion Gap 4.0 mmol/L Blood Urea Nitrogen 10 mg/dl Creatinine 0.95 mg/dl Est Creatinine Clear Calc Drug Dose 144.2 ml/min Estimated GFR () 112.4 Estimated GFR (Non- 97.0 BUN/Creatinine Ratio 10.5 Random Glucose 109 mg/dl Calcium Level 8.8 mg/dl
--- NOTE | 2017-01-30 11:14 | Progress Note ---
Subjective Date of Service: Jan 30, 2017. Subjective Pt evaluation today including: conversation w/ patient, physical exam, lab review, review of studies, review of inpatient medication list Saw/examined the patient in room 239 He's doing well, had two stents placed yesterday, denies chest pain/shortness of breath No other issues to note Problem List Medical Problems: (1) Elevated troponin Status: Acute (2) Precordial chest pain Status: Acute Review of Systems Respiratory: No cough, No sputum, No wheezing, No shortness of breath, No dyspnea on exertion, No dyspnea at rest, No hemoptysis Cardiac: No chest pain, No edema, No palpitations Medications Current Inpatient Medications Medications (Trade) Dose Ordered Sig/Meño Route Start Time Stop Time Status Last Admin Dose Admin Ioversol (Optiray 320) 100 ml UD PRN IV 01/29/17 02:15 02/02/17 02:14 Acetaminophen (Tylenol Tab) 650 mg Q4H PRN PO 01/29/17 03:30 02/28/17 03:29 Al Hydrox/Mg Hydrox/Simethicone (Maalox Max Susp) 15 ml Q4H PRN PO 01/29/17 03:30 02/28/17 03:29 Magnesium Hydroxide (Milk Of Magnesia Susp) 30 ml Q12H PRN PO 01/29/17 03:30 02/28/17 03:29 Ondansetron HCl (Zofran Inj) 4 mg Q6H PRN IV 01/29/17 03:30 02/28/17 03:29 Nitroglycerin (Nitrostat Tab) 0.4 mg UD PRN SL 01/29/17 03:30 02/28/17 03:29 01/29/17 11:06 0.4 MG Aspirin (Ecotrin Tab) 81 mg QAM PO 01/29/17 09:00 02/28/17 08:59 01/30/17 08:50 81 MG Polyethylene (Miralax Powder Packet) 17 gm DAILY PRN PO 01/29/17 03:30 02/28/17 03:29 Miscellaneous (Iv Fluids Completed) 1 ea PRN PRN N/A 01/29/17 04:45 01/29/18 04:44 Morphine Sulfate (MoRPHine SULFATE INJ) 1 mg Q4 PRN IV 01/29/17 04:45 02/12/17 04:44 Morphine Sulfate (MoRPHine SULFATE INJ) 2 mg Q4 PRN IV 01/29/17 04:45 02/12/17 04:44 Atorvastatin Calcium (Lipitor Tab) 80 mg QAM PO 01/30/17 09:00 03/01/17 08:59 01/30/17 08:50 80 MG Clopidogrel Bisulfate (plAVix TAB) 75 mg QAM PO 01/30/17 09:00 03/01/17 08:59 01/30/17 08:51 75 MG Metoprolol Succinate (Toprol Xl Tab) 25 mg QAM PO 01/31/17 09:00 03/02/17 08:59 UNV Metoprolol Succinate (Toprol Xl Tab) 25 mg 1104 ONCE PO 01/30/17 11:04 01/30/17 11:05 UNV Objective Vital Signs Date Time Temp Pulse Resp B/P (MAP) Pulse Ox O2 Delivery O2 Flow Rate FiO2 01/30/17 08:00 Room Air 01/30/17 07:39 37.0 89 20 130/88 (102) 95 Room Air 01/30/17 04:00 Room Air 01/30/17 03:15 36.5 84 20 131/83 (99) 97 Room Air 01/29/17 23:59 Room Air 01/29/17 23:19 36.6 82 18 129/78 (95) 96 Room Air 01/29/17 20:00 Room Air 01/29/17 19:13 37.0 87 20 163/89 (113) 96 Room Air 151/92 (111) 01/29/17 18:15 85 18 130/84 (99) 96 01/29/17 17:15 81 18 124/82 (96) 96 01/29/17 16:15 78 18 108/72 (84) 96 01/29/17 16:00 96 Room Air 01/29/17 15:47 36.4 77 20 95 Room Air 01/29/17 15:45 80 18 120/80 (93) 96 01/29/17 15:32 73 20 127/87 (100) 01/29/17 15:30 76 15 120/80 (93) 97 01/29/17 15:15 79 15 132/80 (97) 97 01/29/17 15:00 78 16 130/88 (102) 95 01/29/17 14:45 84 16 147/90 (109) 95 01/29/17 14:30 36.5 82 18 143/91 (108) 96 Room Air 01/29/17 13:55 71 18 146/99 (115) 96 Room Air 01/29/17 13:50 72 16 138/92 (107) 95 Room Air 01/29/17 13:45 75 14 139/99 (112) 95 Room Air 01/29/17 13:40 91 16 135/96 (109) 100 Mask 3 01/29/17 12:00 96 Room Air 01/29/17 11:38 36.9 95 20 149/88 (108) 98 Room Air Physical Exam General Appearance: no apparent distress Respiratory/Chest: chest non-tender, lungs clear, normal breath sounds, no respiratory distress, no accessory muscle use Cardiovascular: regular rate, rhythm, no edema, no gallop, no JVD, no murmur Laboratory Results Last 24 Hours Test 01/29/17 12:32 01/29/17 12:50 01/29/17 13:12 01/29/17 18:22 Kaolin Activated Coagulation Time 114 SECONDS 202 SECONDS 208 SECONDS Activated Partial Thromboplast Time 26.6 SECONDS Partial Thromboplastin Ratio 1.0 Test 01/30/17 06:20 White Blood Count 9.16 K/uL Red Blood Count 4.91 M/uL Hemoglobin 14.7 g/dL Hematocrit 42.3 % Mean Corpuscular Volume 86.2 fL Mean Corpuscular Hemoglobin 29.9 pg Mean Corpuscular Hemoglobin Concent 34.8 g/dl Platelet Count 281 K/uL Mean Platelet Volume 9.3 fL Neutrophils (%) (Auto) 70.0 % Lymphocytes (%) (Auto) 22.2 % Monocytes (%) (Auto) 6.6 % Eosinophils (%) (Auto) 0.8 % Basophils (%) (Auto) 0.2 % Neutrophils # (Auto) 6.42 K/uL Lymphocytes # (Auto) 2.03 K/uL Monocytes # (Auto) 0.60 K/uL Eosinophils # (Auto) 0.07 K/uL Basophils # (Auto) 0.02 K/uL RDW Standard Deviation 41.0 fL RDW Coefficient of Variation 13.0 % Immature Granulocyte % (Auto) 0.2 % Immature Granulocyte # (Auto) 0.02 K/uL Activated Partial Thromboplast Time 27.0 SECONDS Partial Thromboplastin Ratio 1.0 Sodium Level 139 mmol/L Potassium Level 3.9 mmol/L Chloride Level 108 mmol/L Carbon Dioxide Level 27 mmol/L Anion Gap 4.0 mmol/L Blood Urea Nitrogen 10 mg/dl Creatinine 0.95 mg/dl Est Creatinine Clear Calc Drug Dose 144.2 ml/min Estimated GFR () 112.4 Estimated GFR (Non- 97.0 BUN/Creatinine Ratio 10.5 Random Glucose 109 mg/dl Calcium Level 8.8 mg/dl Assessment and Plan This is a 46 year old obese male with no significant PMH presents with RUQ abdominal pain vs. lower chest pain NSTEMI 01/30 patient troponin elevated yesterday to 1 started on IV heparin, aspirin, statin taken to laboratory analyst - stents to mid-circumflex and mid-LAD aspirin, Plavix x1 year high-intensity statin Toprol XL as per cardiology cardio rehab outpatient cardiology follow-up 01/29 possibly related to gallbladder disease? pain is worse with certain fatty foods RUQ unremarkable will obtain a HIDA scan r/o ACS due to possible chest pain echo results pending initial cardiac enzyme mild bump noted at 0.064, two sets pending risk factors include obesity and family history likely outpatient stress DVT ppx ambulation FULL CODE
[2017-01-30 11:58] VITALS: BP 125/81; PULSE 76; TEMP 36.9; O2SAT 95
[2017-01-30 12:00] VITALS: BP 125/81; PULSE 76; TEMP 36.9; O2SAT 95
[2017-01-30] MEDS ORDERED: LPT40 PO (12:15)
[2017-01-30] MEDS ORDERED: PLV75 PO (12:15)
[2017-01-30] MEDS ORDERED: TPRSR25 PO (12:15)
[2017-01-30] MEDS ORDERED: ASPEC81 PO (12:15)
--- NOTE | 2017-01-30 12:18 | Discharge Instructions ---
Discharge Instructions Date of Service Jan 30, 2017. Admission Reason for Admission: Chest Pain Discharge Discharge Diagnosis / Problem: NSTEMI s/p PCI and stents to mid LAD/mid circumflex Discharge Goals Goal(s): Decrease discomfort, Improve function, Diagnostic testing, Therapeutic intervention Activity Recommendations Activity Limitations: resume your previous activity . Instructions / Follow-Up Instructions / Follow-Up Please follow-up with Dr. Marks on February 04 at 10:05AM Please follow-up with cardiology in 1-2 weeks Please follow-up with cardiac rehab * You will be started on aspirin and Plavix for one year, uninterrupted * You will be started on Lipitor 80mg; take this every night * You will be started on Toprol-XL 25mg once daily * You will need a repeat echocardiogram in ~ 6 weeks Current Hospital Diet Patient's current hospital diet: AHA Diet (Heart Healthy) Discharge Diet Recommended Diet: AHA Diet (Heart Healthy) Pending Studies Studies pending at discharge: no Laboratory Results Lipid Panel Test 01/29/17 05:46 Range/Units Triglycerides Level 194 H 0-150 mg/dl Cholesterol Level 178 0-200 mg/dl HDL Cholesterol 24 mg/dl Cholesterol/HDL Ratio 7.4 LDL Cholesterol, Calculated 115 mg/dl Medical Emergencies . Who to Call and When: Medical Emergencies: If at any time you feel your situation is an emergency, please call 911 immediately. . Non-Emergent Contact Non-Emergency issues call your: Primary Care Provider, Manager Of Hospital . . "Provider Documentation" section prepared by Randy Berry. . VTE Core Measure Inpt VTE Proph given/why not?: Artem Munoz, SRUTHI's
--- NOTE | 2017-01-30 12:20 | Discharge Summary ---
Discharge Summary Date of Service Jan 30, 2017. Discharge Summary Admission Date: Jan 29, 2017 at 15:08 Discharge Date: Jan 30, 2017 Discharge Disposition: Home Principal Diagnosis: NSTEMI s/p PCI/stents to the mid-LAD and mid-circumflex arteries Medication Reconciliation New Medications: Aspirin (Aspirin EC Low Dose) 81 Mg Ectab 81 MG PO QAM for 30 Days, #30 TABS Atorvastatin (Atorvastatin Calcium) 40 Mg Tab 80 MG PO QAM for 30 Days, #60 TAB 2 Refills Clopidogrel Bisulfate (Clopidogrel) 75 Mg Tab 75 MG PO QAM for 30 Days, #30 TAB 2 Refills Metoprolol Succinate (Metoprolol Succinate ER) 25 Mg Tabcr 25 MG PO QAM for 30 Days, #30 TABS 2 Refills Continued Medications: Ascorbic Acid (Ascorbic Acid) 500 Mg Tab 1000 MG PO [id number] Discontinued Medications: Doxycycline Monohydrate (Monodox) 100 Mg Cap 100 MG PO DAILY Admission Information HPI (per Admitting provider): This is a 46 yo male with medical hx of obesity , THEODORA ( not on CPAP after reconstructive palatal surgery ) , very significant family hx of premature CAD ( father at age 54 , mother had DE at age 56 , in 2010 due to DE / Cardiac arrest , sister had DE s/p PTCA at age 44 ) presents to ED with complain of rt upper quadrant pain radiation to back - symptom associated with food intake pt mentions of having these attacks on and off usually followed by eating fat or greasy food , no nausea gets abdominal pain and bloating , no SOB working , exercise makes symptom better this afternoon he ate [employer] -started to experience similar pain , worked in garden for sometime which seems to make him feel better around 10 pm continued to have discomfort , pain and bloating his Sister had similar symptom of indigestion while she was diagnosed of CAD requiring stent pt decided to come to ED for evaluation in the no improvement of symptom with SL nitro IV morphine helped to ease up rt upper quadrant pain lab work in unremarkable including liver function test CTA of chest negative for PE Gall bladder USG -prelim report -no evidence of stone or pericholecystic fluid Physical Exam (per Admitting): General Appearance: no apparent distress Head: normocephalic Eyes: sclerae normal Neck: supple, no JVD, no carotid bruits, trachea midline Respiratory/Chest: chest non-tender, lungs clear, normal breath sounds, no respiratory distress Cardiovascular: regular rate, rhythm, no JVD Abdomen/GI: soft, + pertinent finding (rt upper quadrant dull tenderness, no rebound , not typical eng's point tenderness noted ) Extremities/Musculoskelatal: no calf tenderness, normal capillary refill, no pedal edema Neurologic/Psych: alert, normal mood/affect, oriented x 3 Skin: normal color, warm/dry, no rash Hospital Course This is a 46 year old obese male with no significant PMH presents with RUQ abdominal pain vs. lower chest pain NSTEMI 01/30 patient troponin elevated yesterday to 1 started on IV heparin, aspirin, statin taken to microbiological laboratory technician - stents to mid-circumflex and mid-LAD aspirin, Plavix x1 year high-intensity statin Toprol XL as per cardiology cardio rehab outpatient cardiology follow-up 01/29 possibly related to gallbladder disease? pain is worse with certain fatty foods RUQ unremarkable will obtain a HIDA scan r/o ACS due to possible chest pain echo results pending initial cardiac enzyme mild bump noted at 0.064, two sets pending risk factors include obesity and family history likely outpatient stress DVT ppx ambulation FULL CODE Total time spent on discharge = 40 minutes This includes examination of the patient, discharge planning, medication reconciliation, and communication with other providers. Discharge Instructions Please follow-up with Dr. Marks on February 04 at 10:05AM Please follow-up with cardiology in 1-2 weeks Please follow-up with cardiac rehab * You will be started on aspirin and Plavix for one year, uninterrupted * You will be started on Lipitor 80mg; take this every night * You will be started on Toprol-XL 25mg once daily * You will need a repeat echocardiogram in ~ 6 weeks
[2017-01-31] MEDS ORDERED: METOPROLOL SUCC 25MG EXT REL TAB PO SCH (09:00)
[2017-02-02] MEDS ORDERED: LSN25 PO (17:42)
[2017-02-02] MEDS ORDERED: NTRSLP4 SL (17:42)
[2017-02-02] MEDS ORDERED: TPRSR25 PO (17:42)
== END 2017-01-30 14:14 | disposition home or self-care (01) | DRG 281 ==
LOC: C.EDB 23:03 → C.2T 01-29 03:17 → ENRESERV 01-29 03:27 → OBSVTOIN 01-29 15:08
PROVIDERS: ADMIT Hospitalist; ATTEND Family Medicine
PROC: 4A023N7 Measurement of Cardiac Sampling and Pressure, Left Heart, Percutaneous Approach (ICD-10-PCS; principal; 2017-01-29 12:18)
PROC: B2111ZZ Fluoroscopy of Multiple Coronary Arteries using Low Osmolar Contrast (ICD-10-PCS; principal; 2017-01-29 12:18)
DX: I21.4 Non-ST elevation (NSTEMI) myocardial infarction (principal); I47.2 Ventricular tachycardia; I25.10 Atherosclerotic heart disease of native coronary artery without angina pectoris; G47.33 Obstructive sleep apnea (adult) (pediatric); Z82.41 Family history of sudden cardiac death; Z82.49 Family history of ischemic heart disease and other diseases of the circulatory system; E66.9 Obesity, unspecified; Z68.37 Body mass index [BMI] 37.0-37.9, adult; K82.9 Disease of gallbladder, unspecified; E78.5 Hyperlipidemia, unspecified; R03.0 Elevated blood-pressure reading, without diagnosis of hypertension

== ENCOUNTER 2017-02-01 10:37 | Inpatient (IN) | payer OTHER ==
[~2017-02-01] VITALS: Ht 188 cm; Wt 127.6 kg
[~2017-02-01 10:37] MED LIST changes: -AMOX400S3 PO; -ASCAUNK PO; +ASCO500T16 PO; +ASPEC81 PO; -FISHOIL PO; +LPT40 PO; -LRTUDL15 PO; +PLV75 PO; -ROSU5TAB PO; +TPRSR25 PO
[2017-02-01 11:19] LABS: BASO % 0.1 %; BASO ABS # 0.01 K/uL (0-0.2); COMPLETE YES; EOS % 0.9 %; HEMATOCRIT 48.2 % (42-52); IG% 0.2 %; LYMPH % 21.5 %; LYMPH ABS # 1.85 K/uL (1.2-3.4); MEAN CELL VOLUME 86.7 fL (80-100); MEAN CORPUSCULAR HEMOGLOBIN 28.6 pg (25-34); MEAN PLATELET VOLUME 9.4 fL (7.4-10.4); MONO % 7.4 %; NEUT % 69.9 %; PLATELET COUNT 330 K/uL (130-400); RED BLOOD COUNT 5.56 M/uL (4.7-6.1); WHITE BLOOD COUNT 8.61 K/uL (4.8-10.8)
--- NOTE | 2017-02-01 11:21 | EMERGENCY ROOM VISIT NOTE ---
History Report prepared by Kirstie: Gonzales Lafleur Under the Supervision of: Dr. Hailey Momin M.D. First contact with patient: 10:57 Chief Complaint: CHEST PAIN Stated Complaint: RECENT STENT PLACEMENT, CHEST PRESSURE History of Present Illness The patient is a 46 year old male who presents to the Emergency Room with complaints of constant chest pressure beginning 5 days ago. The patient states that he was in the hospital 5 days ago and had 2 stents placed. He reports that his discomfort began while in the hospital and told the staff. The patient notes that he was discharged on aspirin, Lipitor, Plavix, and Metoprolol. He reports that he took all of them today. The patient notes that this morning he exercised and went for a walk this morning. He states that the walking increased his discomfort. The patient reports that his pain radiates to his left shoulder and out his left arm. He notes that he has been experience diaphoresis at night. He denies fevers and chills. Source of History: patient Onset: 5 days Position: chest Timing: constant Associated Symptoms: No fevers, No chills Note: Associated symptoms: left arm and shoulder pain Review of Systems See HPI for pertinent positives & negatives. A total of 10 systems reviewed and were otherwise negative. Past Medical & Surgical Medical Problems: (1) Angina pectoris with normal coronary arteriogram (2) Chest pain Family History Patient reports no known family medical history. Social History Smoking Status: Former Smoker Alcohol Use: none Drug Use: none Occupation Status: employed Current/Historical Medications Scheduled Aspirin (Aspirin EC Low Dose), 81 MG PO QAM Atorvastatin (Atorvastatin Calcium), 80 MG PO QAM Clopidogrel Bisulfate (Clopidogrel), 75 MG PO QAM Metoprolol Succinate (Metoprolol Succinate ER), 25 MG PO QAM Allergies Coded Allergies: No Known Allergies (Unverified , 02/01/17) Physical Exam Vital Signs Date Time Temp Pulse Resp B/P (MAP) Pulse Ox O2 Delivery O2 Flow Rate FiO2 02/01/17 13:07 83 14 96 02/01/17 13:01 137/89 02/01/17 12:37 79 15 94 02/01/17 12:31 127/80 02/01/17 12:07 79 14 95 02/01/17 12:01 129/87 02/01/17 11:39 96 Room Air 02/01/17 11:37 83 14 95 02/01/17 11:31 121/84 02/01/17 11:07 84 15 95 02/01/17 11:05 99 Room Air 02/01/17 11:05 81 02/01/17 11:02 84 19 96 02/01/17 11:01 120/87 02/01/17 10:59 132/87 02/01/17 10:57 81 27 02/01/17 10:44 36.7 92 16 133/90 98 Room Air Physical Exam Vital signs reviewed. General: Well-appearing, obese 46 year old male, in no significant distress. HEENT: No scleral icterus, PERRLA, neck supple. Atraumatic. Cardiovascular: Regular rate and rhythm, no extra sounds. Pulmonary: Clear to auscultation bilaterally, normal work of breathing. Abdomen: Soft, nontender, nondistended, positive bowel sounds. Musculoskeletal: Atraumatic, no peripheral edema. Neurologic: Patient awake alert and oriented x 3 Skin: Warm, dry, no rash Medical Decision & Procedures ER Provider Diagnostic Interpretation: X-ray results as stated below per interpretation by me and the radiologist: CHEST ONE VIEW PORTABLE HISTORY: 46 years-old Male chest pain, recent stent COMPARISON: Portable chest radiograph 01/28/2017 TECHNIQUE: Upright AP view of the chest FINDINGS: Cardiac silhouette is within normal limits. There is no pneumothorax, pleural effusion or focal airspace consolidation. Bones are grossly intact. IMPRESSION: No acute cardiopulmonary process. The above report was generated using voice recognition software. It may contain grammatical, syntax or spelling errors. Electronically signed by: Kody Trujillo M.D. 02/01/2017 11:51 AM Dictated Date/Time: 02/01/2017 11:51 AM Laboratory Results 02/01/17 10:50 Red Blood Count 5.56, Mean Corpuscular Volume 86.7, Mean Corpuscular Hemoglobin 28.6, Mean Corpuscular Hemoglobin Concent 33.0, Mean Platelet Volume 9.4, Neutrophils (%) (Auto) 69.9, Lymphocytes (%) (Auto) 21.5, Monocytes (%) (Auto) 7.4, Eosinophils (%) (Auto) 0.9, Basophils (%) (Auto) 0.1, Neutrophils # (Auto) 6.01, Lymphocytes # (Auto) 1.85, Monocytes # (Auto) 0.64, Eosinophils # (Auto) 0.08, Basophils # (Auto) 0.01 02/01/17 10:50 Test 02/01/17 10:50 02/01/17 11:14 02/01/17 12:01 White Blood Count 8.61 K/uL (4.8-10.8) Red Blood Count 5.56 M/uL (4.7-6.1) Hemoglobin 15.9 g/dL (14.0-18.0) Hematocrit 48.2 % (42-52) Mean Corpuscular Volume 86.7 fL (80-100) Mean Corpuscular Hemoglobin 28.6 pg (25-34) Mean Corpuscular Hemoglobin Concent 33.0 g/dl (32-36) Platelet Count 330 K/uL (130-400) Mean Platelet Volume 9.4 fL (7.4-10.4) Neutrophils (%) (Auto) 69.9 % Lymphocytes (%) (Auto) 21.5 % Monocytes (%) (Auto) 7.4 % Eosinophils (%) (Auto) 0.9 % Basophils (%) (Auto) 0.1 % Neutrophils # (Auto) 6.01 K/uL (1.4-6.5) Lymphocytes # (Auto) 1.85 K/uL (1.2-3.4) Monocytes # (Auto) 0.64 K/uL (0.11-0.59) Eosinophils # (Auto) 0.08 K/uL (0-0.5) Basophils # (Auto) 0.01 K/uL (0-0.2) RDW Standard Deviation 40.8 fL (36.4-46.3) RDW Coefficient of Variation 12.8 % (11.5-14.5) Immature Granulocyte % (Auto) 0.2 % Immature Granulocyte # (Auto) 0.02 K/uL (0.00-0.02) Anion Gap 7.0 mmol/L (3-11) Est Creatinine Clear Calc Drug Dose 132.9 ml/min Estimated GFR () 105.6 Estimated GFR (Non- 91.1 BUN/Creatinine Ratio 12.4 (10-20) Calcium Level 9.4 mg/dl (8.5-10.1) Magnesium Level 2.3 mg/dl (1.8-2.4) Total Bilirubin 0.7 mg/dl (0.2-1) Direct Bilirubin 0.2 mg/dl (0-0.2) Aspartate Amino Transf (AST/SGOT) 23 U/L (15-37) Alanine Aminotransferase (ALT/SGPT) 54 U/L (12-78) Alkaline Phosphatase 71 U/L (45-117) Total Creatine Kinase 101 U/L (39-308) Creatine Kinase MB 1.4 ng/ml (0.5-3.6) Creatine Kinase MB Ratio 1.4 (0-3.0) Total Protein 7.6 gm/dl (6.4-8.2) Albumin 3.9 gm/dl (3.4-5.0) Lipase 106 U/L (73-393) Troponin I 1.120 ng/ml (0-0.045) Bedside Troponin I 1.180 ng/ml (0-0.045) Laboratory results per my review. Medications Administered Medications (Trade) Dose Ordered Sig/Meño Route Start Time Stop Time Status Last Admin Dose Admin Lorazepam (Ativan Tab) 1 mg NOW STAT SL 02/01/17 12:39 02/01/17 12:40 DC 02/01/17 12:39 1 MG Nitroglycerin (Nitrostat Tab) 0.4 mg STK-MED ONCE .ROUTE 02/01/17 13:53 02/01/17 13:54 DC 02/01/17 13:53 0.4 MG ECG Indication: chest pain Rate (beats per minute): 81 Rhythm: normal sinus Findings: RBBB (incomplete), no acute ischemic change ED Course 1101: Past medical records reviewed. The patient was evaluated in room C08. A complete history and physical examination was performed. 1239: Ordered Ativan Tab 1mg SL 1245: Upon reevaluation, the patient is resting comfortably. I discussed laboratory and radiographic results with him. He verbalized agreement of the treatment plan. 1253: I discussed the patient's case with Dr. Atwood, Cardiology. He said he would evaluated the patient. 1307: I discussed the patient's case with Dr. Pham, [facility] Hospitalist. The patient will be evaluated for further treatment. Medical Decision Differential diagnoses includes acute coronary syndrome, pulmonary embolus, aortic dissection, musculoskeletal pain, pneumonia, pleural effusion, pneumothorax, gastritis, peptic ulcer disease. This patient was evaluated and appeared to be in no significant distress. IV access was obtained and laboratory work was drawn. The patient was placed on the manager monitoring and found to be in a normal sinus rhythm. Patient's EKG reveals an incomplete right bundle-branch block. Patient's cardiac enzymes are mildly elevated with a troponin of 1.18. The patient took his aspirin earlier this morning. He is also currently on Plavix. I did speak with Dr. Ildefonso Atowod of cardiology who will evaluate the patient emergency department for further management. Dr. Canas of the [facility] service was consulted for the admission. Patient is aware of the plan and agrees. Consults Time Called: 1246 Consulting Physician: Dr. Atwood, Cardiology Returned Call: 1253 I discussed the patient's case with Dr. Atwood, Cardiology. He said he would evaluated the patient. Additional Consults: Time Called: 1247 Consulted Physician: Dr. hPam, [facility] Returned Call: 1307 Additional Comments: I discussed the patient's case with Dr. Pham [facility]. The patient will be evaluated for further treatment. Impression Primary Impression: ACS (acute coronary syndrome) Additional Impression: Stented coronary artery Scribe Attestation The scribe's documentation has been prepared under my direction and personally reviewed by me in its entirety. I confirm that the note above accurately reflects all work, treatment, procedures, and medical decision making performed by me. Departure Information Dispostion Being Evaluated By Hospitalist Referrals Keily Marks M.D. (MEDICAL) (PCP) Patient Instructions My [facility] Problem Qualifiers
[2017-02-01 11:42] LABS: BUN/CREATININE RATIO 12.4 (10-20); CALCIUM 9.4 mg/dl (8.5-10.1); MAGNESIUM 2.3 mg/dl (1.8-2.4)
[2017-02-01 11:45] LABS: CKMB/CK RATIO 1.4 (0-3.0)
--- NOTE | 2017-02-01 11:53 | DIAGNOSTIC IMAGING REPORT ---
CHEST ONE VIEW PORTABLE HISTORY: 46 years-old Male chest pain, recent stent COMPARISON: Portable chest radiograph 01/28/2017 TECHNIQUE: Upright AP view of the chest FINDINGS: Cardiac silhouette is within normal limits. There is no pneumothorax, pleural effusion or focal airspace consolidation. Bones are grossly intact. IMPRESSION: No acute cardiopulmonary process. The above report was generated using voice recognition software. It may contain grammatical, syntax or spelling errors. Electronically signed by: Kody Trujillo M.D. 02/01/2017 11:51 AM Dictated Date/Time: 02/01/2017 11:51 AM
[2017-02-01] MEDS ORDERED: LORAZEPAM 1 MG TAB SL STA (12:39)
[2017-02-01] MEDS ORDERED: NITROGLYCERIN 0.4 MG SL PER TAB CHARGE SL STA (13:45)
[2017-02-01] MEDS ORDERED: NITROGLYCERIN 0.4 MG SL PER TAB CHARGE ONE (13:53)
[2017-02-01] MEDS ORDERED: MoRPHine SULFATE 4 MG/ML 1 ML CARP\\VIAL IV ONE (14:04)
[2017-02-01] MEDS ORDERED: MoRPHine SULFATE 4 MG/ML 1 ML CARP\\VIAL IV PRN (14:15)
[2017-02-01] MEDS ORDERED: ACETAMINOPHEN 325 MG TAB PO PRN (14:15)
[2017-02-01] MEDS ORDERED: ONDANSETRON INJ 2 MG/ML 2 ML VIAL IV PRN (14:15)
[2017-02-01] MEDS ORDERED: HEPARIN IV BOLUS 4,000 UNIT in SYRINGE 0 ML IV SCH (15:15)
[2017-02-01] MEDS ORDERED: HEPARIN SOD 5000 UNIT/0.5 ML CARP ONE (15:38)
[2017-02-01] MEDS: HEPARIN 25,000 UNIT/500ML D5W 500 ML IV PRN ×2 (15:45→23:08)
[2017-02-01] MEDS ORDERED: PANTOprazole SOD 40 MG TAB PO ONE (16:01)
[2017-02-01 16:18] VITALS: BP 150/99; PULSE 78; TEMP 37; O2SAT 99; Ht 188 cm; Wt 127.6 kg
[2017-02-01 16:22] LABS: INR 1.1 (0.9-1.1); PARTIAL THROMBOPLASTIN RATIO 1.2; PROTHROMBIN TIME (PATIENT) 11.4 SECONDS (9.0-12.0)
[2017-02-01] MEDS: NITROGLYCERIN OINT 2% 1GM PACKET EXT SCH ×2 (18:24→23:04)
[2017-02-01 18:43] VITALS: BP 117/79; PULSE 104; TEMP 37; O2SAT 94
--- NOTE | 2017-02-01 19:53 | HISTORY & PHYSICAL EXAMINATION ---
DATE OF ADMISSION: 02/01/2017 PRIMARY CARE PHYSICIAN: Dr. Marks. CHIEF COMPLAINT: Typical angina following one mile walk. HISTORY OF PRESENT COMPLAINT: He is a 46-year-old male with significant past medical history including obesity, sleep apnea, hyperlipidemia, stress and anxiety apparently has had non-ST elevation PR on and he had a cardiac catheterization on and placed a stent in mid circumflex and also LAD and went home late . He has been taking aspirin and Plavix since then. He complains to have some discomfort in that area since discharge, but today he went to walk outside and he walked about 1 mile. After that, he complained to have more chest pain in the precordial area associated with sweating and the pain radiated to the left shoulder and left upper extremity up to the fingers. From that point, he came to the Emergency Room. In the ER, he was still having some pain and he was very anxious but no sweating and he was hemodynamically stable. His apparent blood test showed a troponin of 1.12, which was 1.4 on discharge from the hospital and EKG did not show any significant change. From that point, he was advised admission and also heparin, nitroglycerin was added to his medication and also given morphine for anxiety. Denies to have any headache, any blurred vision, any numbness or tingling in the extremities. Did not have any cough, any phlegm, any fever or chills. No shortness of breath. No wheezing. No abdominal pain, nausea, vomiting. Denies to have any problem with urine and/or bowel habit and does not have any numbness or tingling in the lower extremities or weakness involving any side. PAST MEDICAL HISTORY: Significant for obesity and strong family history of cardiac disease, both of his parents had heart disease and of heart problems. Stress with anxiety, sleep apnea and does not take any CPAP or BiPAP and hyperlipidemia. PAST SURGICAL HISTORY: Tonsillectomy as a child, palatal surgery in 2011 and recent cardiac catheterization on January status post stent in mid circumflex and LAD. FAMILY HISTORY: Significant that father and mother and sister have heart disorder. SOCIAL HISTORY: He is single. He quit smoking in 2000. He does not drink any alcohol and he has been reasonably ambulant. ALLERGIES: NKDA. MEDICATIONS: He has been on aspirin and Plavix and also atorvastatin 80 mg daily, and metoprolol succinate 25 mg in the morning. REVIEW OF SYSTEMS: Other systems reviewed are unremarkable except those mentioned in history of present complaint. PHYSICAL EXAMINATION: GENERAL: On examination in the Emergency Room, he was very anxious, not having any acute distress. VITAL SIGNS: Temperature 36.7, pulse of 81, blood pressure 137/89 saturation 96% on room air. HEENT: Unremarkable. NECK: Supple, no JVD, no bruit. CHEST: Clear to auscultate bilaterally. No chest wall tenderness. HEART: S1, S2 regular. No murmur. ABDOMEN: Soft, benign, nontender, no organomegaly. Bowel sounds present. EXTREMITIES: Negative for any edema. MUSCULOSKELETAL: Did not show any acute arthritis involving any joint. CENTRAL NERVOUS SYSTEM: He is alert, awake, oriented x3 and no focal sensory and/or motor deficit appreciated. LABORATORY DATA: Noted today - white count was 8.61, H&H 15.9/48.2, platelets was 330. Sodium 137, potassium 4.0, chloride 102, carbon dioxide 28, BUN 12, creatinine 1.0, random glucose 101. LFTs normal. CK, CK-MB normal. Troponin was 1.120 and his troponin on was 1.4. Lipase normal. IMAGING DATA: EKG was in sinus rhythm at the rate of 81 per minute, normal axis, incomplete right bundle without any significant ST-T wave changes. Chest x-ray reported as no acute cardiopulmonary process. IMPRESSION AND PLAN: 1. Angina status post recent cardiac stent on of this month. The patient will be admitted to telemetry unit, serial cardiac enzymes to rule out acute coronary syndrome. He was started with nitro paste to relieve angina and also a small dose of morphine for ongoing anxiety. He was started with intravenous heparin on top of aspirin and Plavix that he has been getting. He will continue with his beta jake. Cardiology evaluation while in the hospital. 2. Anxiety. He has more anxiety, now he will be given a small dose of morphine to pain control and also from relief from anxiety. 3. Sleep apnea. He does not use any CPAP and/or BIPAP at home. Will observe in the hospital. 4. Hyperlipidemia. It was borderline, but he does have low HDL cholesterol, he has been on atorvastatin 80 mg, will continue with that. 5. Gastrointestinal prophylaxis. Will add proton pump inhibitor. 6. Deep venous thrombosis prophylaxis will be on heparin. CODE STATUS: Full code. In my clinical judgment, the beneficiary meets criteria as per CMS for 2-midnight stay in the hospital. SUMEET
[2017-02-01 20:53] LABS: CKMB/CK RATIO 1.2 (0-3.0)
[2017-02-01] MEDS ORDERED: NURSING VERBAL MED ORDER ONE (21:15)
[2017-02-01] MEDS ORDERED: LORAZEPAM 1 MG TAB PO PRN (21:15)
[2017-02-01 22:24] LABS: PARTIAL THROMBOPLASTIN RATIO 1.2
[2017-02-01] MEDS ORDERED: HEPARIN IV BOLUS 4,500 UNIT in SYRINGE 0 ML IV STA (22:34)
[2017-02-01 23:00] VITALS: BP 122/74; PULSE 95; TEMP 36.7; O2SAT 95
[2017-02-02] VITALS (13 sets, daily range): BP systolic 108–156; BP diastolic 67–88; PULSE 83–101; TEMP 36.4–37.1; O2SAT 94–98
[2017-02-02 02:53] LABS: CKMB/CK RATIO 1.1 (0-3.0)
[2017-02-02 04:59] LABS: MEAN CELL VOLUME 86.2 fL (80-100); MEAN CORPUSCULAR HEMOGLOBIN 28.2 pg (25-34); MEAN CORPUSCULAR HGB CONC 32.7 g/dl (32-36); MEAN PLATELET VOLUME 9.4 fL (7.4-10.4); PLATELET COUNT 313 K/uL (130-400); RED BLOOD COUNT 5.22 M/uL (4.7-6.1); WHITE BLOOD COUNT 9.08 K/uL (4.8-10.8)
[2017-02-02 05:10] LABS: PARTIAL THROMBOPLASTIN RATIO 1.2
[2017-02-02 05:21] LABS: BUN/CREATININE RATIO 13.1 (10-20); CALCIUM 9.2 mg/dl (8.5-10.1); MAGNESIUM 2.1 mg/dl (1.8-2.4)
[2017-02-02] MEDS ORDERED: HEPARIN IV BOLUS 4,500 UNIT in SYRINGE 0 ML IV STA (05:40)
[2017-02-02] MEDS: NITROGLYCERIN OINT 2% 1GM PACKET EXT SCH ×2 (05:48→12:00)
[2017-02-02] MEDS: HEPARIN 25,000 UNIT/500ML D5W 500 ML IV PRN (05:51)
[2017-02-02] MEDS ORDERED: ATORVASTATIN 40 MG TAB PO SCH (09:00)
[2017-02-02] MEDS ORDERED: ASPIRIN 81 MG ECTAB PO SCH (09:00)
[2017-02-02] MEDS ORDERED: CLOPIDOGREL BISULFATE 75 MG TAB PO SCH (09:00)
[2017-02-02] MEDS ORDERED: METOPROLOL SUCC 25MG EXT REL TAB PO SCH ×2 (09:00→17:00)
[2017-02-02] MEDS ORDERED: PANTOprazole SOD 40 MG TAB PO SCH (09:00)
[2017-02-02 09:02] LABS: CKMB/CK RATIO 1.1 (0-3.0)
--- NOTE | 2017-02-02 09:58 | CARDIOLOGY CONSULTATION ---
DATE OF CONSULTATION: 02/02/2017 CONSULTATION REQUESTED BY: Dr. Pham. REASON FOR CONSULTATION: Chest discomfort. HISTORY OF PRESENT ILLNESS: Mr. Becerra is a 46-year-old gentleman who was just discharged from [facility] on 01/30/2017 after undergoing a 2-vessel PCI, who returned to [facility] Emergency Department on the with a complaint of chest discomfort. The patient states that yesterday he went for a walk about a mile with his . Afterwards, he sat down and developed chest discomfort. He described it as a left-sided dull ache. It was different than the discomfort he had prior to the PCIs. He states prior to the stents, he had right-sided chest ache that was much more severe in nature. He ranked it at 9/10 on a pain scale. This episode on the , he ranked as a 2 or 3/10. Upon further questioning, he states it was associated with stress. He states that he has had this similar episode with stress for over 5 years now, but given his recent catheterization, he was concerned it could be cardiac related and he came back into the Emergency Department. He states that since admission, nothing has really helped and the discomfort stayed rather constant. He did receive nitro without any improvement. He states he has been compliant with his medications and has not missed any doses of the aspirin or Plavix. PAST SURGICAL HISTORY: 1. PCI x2 with drug-eluting stent placed to the mid LAD and drug-eluting stent placed to the mid circumflex, 01/29/2017. 2. Tonsillectomy. 3. Palatal surgery. MEDICAL ILLNESSES: 1. Anxiety. 2. Obstructive sleep apnea, not using CPAP. 3. Dyslipidemia. 4. Elevated BMI. 5. Coronary artery disease status post PCI x2. FAMILY HISTORY: He has a very strong family history of premature coronary artery disease. Remarkable for a sister developed coronary artery disease in her 40s and father with premature coronary artery disease. SOCIAL HISTORY: The patient has a former tobacco use, quit in 2000. Denies alcohol or recreational drug use. REVIEW OF SYSTEMS: As per HPI, all other review of systems reviewed and negative at this time. ALLERGIES: No known drug allergies. MEDICATIONS AN OUTPATIENT: 1. Aspirin 81 mg daily. 2. Plavix 75 mg daily. 3. Atorvastatin 80 mg daily. 4. Toprol-XL 25 mg daily. PHYSICAL EXAMINATION: VITAL SIGNS: Temperature 36.5, pulse 87, respiratory rate 12, and blood pressure 118/73. GENERAL: Awake, alert, and oriented x3, no acute distress, mildly anxious. HEENT: Normocephalic and atraumatic. Pupils equal, round, and reactive to light and accommodation. Extraocular muscles intact. Anicteric sclerae. Moist mucous membranes. NECK: No JVD and no bruit. CARDIOVASCULAR: Regular. Positive S4. Normal S1 and S2. No S3. No murmurs or rubs. PULMONARY: Clear to auscultation bilaterally. No rales, rhonchi, or wheezing. ABDOMEN: Bowel sounds x4. Soft. No rebound, guarding, or tenderness. No organomegaly. EXTREMITIES: No clubbing, cyanosis or edema. +2 pedal pulses bilaterally. SKIN: Warm and dry. TEST RESULTS: A 12-lead EKG performed in the Emergency Department independently reviewed at this time shows normal sinus rhythm at 81 beats per minute, incomplete right bundle branch block. No active ischemia. No significant change compared to previous study. Review of telemetry monitoring shows no arrhythmias and no significant ectopy. IMPRESSION: 1. Chest discomfort. 2. Recent percutaneous coronary intervention to the mid circumflex and LAD. 3. Anxiety. 4. Dyslipidemia. 5. History of tobacco abuse. RECOMMENDATIONS: Mr. Becerra was counseled given the fact that his objective testing has come back unremarkable, but he does not appear to be having acute coronary syndrome; however, for completeness sake, given the recent revascularization, we will proceed with cardiac catheterization to check the status of the stents and likely give him reassurance. The patient has been n.p.o. after midnight. His medications have been continued without interrupted aspirin and Plavix. He has been on heparin, which we will discontinue at this point and further recommendations to follow the cardiac catheterization. Thank you very much for allowing me to participate in the care of your patient. SUMEET
[2017-02-02 12:53] LABS: PARTIAL THROMBOPLASTIN RATIO 1.1
[2017-02-02] MEDS ORDERED: NiCARDipine HCL INJ 2.5 MG/ML 10 ML AMP ONE (15:01)
[2017-02-02] MEDS ORDERED: FENTANYL CITRATE INJ 50 MCG/1 ML 2 ML VIAL ONE (15:02)
[2017-02-02] MEDS ORDERED: HEPARIN SOD (PORCINE) 1000 UNIT/ML 10 ML VIAL ONE (15:02)
[2017-02-02] MEDS ORDERED: MIDAZOLAM HCL 1 MG/ML 2ML VIAL ONE (15:02)
[2017-02-02] MEDS ORDERED: ACETAMINOPHEN 325 MG TAB PO PRN (15:45)
[2017-02-02] MEDS ORDERED: SODIUM CHLORIDE 0.9% 1000ML 250 ML IV PRN (15:45)
[2017-02-02] MEDS ORDERED: NITROGLYCERIN 0.4 MG SL PER TAB CHARGE SL PRN (15:45)
[2017-02-02] MEDS ORDERED: SODIUM CHLORIDE 0.9% 1000ML 1,000 ML IV SCH (15:45)
--- NOTE | 2017-02-02 15:57 | [facility] Post Operative Brief Note ---
Preliminary Procedure Note Procedure Date Feb 02, 2017. Pre-Procedure Diagnosis Angina, CAD AUC Score 8 Post-Procedure Diagnosis Moderate CAD Procedure(s) Performed Coronary Angiography, Left Heart Cath [facility] Registrar Dr. Ildefonso Atwood Lines Tender(s) Indira Gong Estimated Blood Loss <15cc Medication(s) Heparin (5000u IV), Nicardipine (300mcg intraarterial after radial sheath insertion and 150 mcg prior to removal), Lidocaine 1% (local infiltration) Preliminary Findings Widely patent stents LAD, Circumflex Large dominant RCA with moderate irregularities, ectasia greatest 40% mid vessel LVEDP 10 Recommendations Medical therapy and/or Counseling Specimens None Fluids (cc crystalloids) 43 Anesthesia Start 1510 End 1535 Sergei RN Becky 1mg IV, Fentanyl 12.5 mcg IV Procedural Complication(s) None Disposition PCU
--- NOTE | 2017-02-02 16:25 | Progress Note ---
Internal Med Progress Note Date of Service: Feb 02, 2017. Provider Documentation: SUBJECTIVE: The patient was seen and examined Denies any more chest pain No more palpitation and or SOB Going to have cath today OBJECTIVE: Vital Signs-as noted below Exam: General-no distress at rest Eyes-normal ENT-normal Neck-supple Lungs-Clear to auscultate bilaterally Heart-Regular,no murmur appreciated Abdomen-Benign,nom masses,bowel sound present Extremities-NO edema Neuro-AAOx3 Lab data as noted below. ASSESSMENT & PLAN: Angina Recent percutaneous coronary intervention to the mid circumflex and LAD Serial Michaela are negative for any ACS Has been on IV Heparin,and Nitropaste Also on BB and statin Appreciate Cardiology input S/P Cardiac cath: patent Stents and no significant Coronary stenosis Likely discharge tomorrow Anxiety. He has more anxiety, now he will be given a small dose of morphine to pain control and also from relief from anxiety. Sleep apnea. He does not use any CPAP and/or BIPAP at home. Will, observe in the hospital. Hyperlipidemia. It was borderline, but he does have low HDL cholesterol, he has been on atorvastatin 80 mg, will continue with that. Gastrointestinal prophylaxis. Will add proton pump inhibitor. Deep venous thrombosis prophylaxis will be on heparin. Vital Signs: Date Time Temp Pulse Resp B/P (MAP) Pulse Ox O2 Delivery O2 Flow Rate FiO2 02/02/17 15:55 95 Room Air 02/02/17 15:55 84 17 147/85 (105) 98 Room Air 02/02/17 15:35 80 16 138/84 (102) 95 Room Air 02/02/17 12:00 37.1 85 16 123/84 (97) 95 Room Air 02/02/17 11:53 95 Room Air 02/02/17 08:47 36.5 87 16 118/73 95 Room Air 02/02/17 08:12 36.5 87 16 118/73 (88) 95 Room Air 02/02/17 07:52 Room Air 02/02/17 04:00 Room Air 02/02/17 03:59 36.4 91 17 108/67 (81) 94 Room Air 02/01/17 23:59 Room Air 02/01/17 23:00 36.7 95 18 122/74 (90) 95 Room Air 02/01/17 20:00 Room Air 8/27/17 18:43 37.0 104 18 117/79 (92) 94 Room Air 02/01/17 16:30 Room Air Lab Results: Results Past 24 Hours Test 02/01/17 20:06 02/01/17 21:44 02/02/17 02:09 02/02/17 04:50 Range/Units Total Creatine Kinase 78 75 39-308 U/L Creatine Kinase MB 0.9 0.8 0.5-3.6 ng/ml Creatine Kinase MB Ratio 1.2 1.1 0-3.0 Troponin I 0.948 0.841 0-0.045 ng/ml Activated Partial Thromboplast Time 30.8 32.2 21.0-31.0 SECONDS Partial Thromboplastin Ratio 1.2 1.2 White Blood Count 9.08 4.8-10.8 K/uL Red Blood Count 5.22 4.7-6.1 M/uL Hemoglobin 14.7 14.0-18.0 g/dL Hematocrit 45.0 42-52 % Mean Corpuscular Volume 86.2 80-100 fL Mean Corpuscular Hemoglobin 28.2 25-34 pg Mean Corpuscular Hemoglobin Concent 32.7 32-36 g/dl RDW Standard Deviation 40.0 36.4-46.3 fL RDW Coefficient of Variation 12.7 11.5-14.5 % Platelet Count 313 130-400 K/uL Mean Platelet Volume 9.4 7.4-10.4 fL Sodium Level 140 136-145 mmol/L Potassium Level 4.0 3.5-5.1 mmol/L Chloride Level 105 98-107 mmol/L Carbon Dioxide Level 28 21-32 mmol/L Anion Gap 7.0 3-11 mmol/L Blood Urea Nitrogen 13 7-18 mg/dl Creatinine 1.00 0.60-1.40 mg/dl Est Creatinine Clear Calc Drug Dose 134.1 ml/min Estimated GFR () 105.6 Estimated GFR (Non- 91.1 BUN/Creatinine Ratio 13.1 10-20 Random Glucose 98 70-99 mg/dl Calcium Level 9.2 8.5-10.1 mg/dl Phosphorus Level 4.0 2.5-4.9 mg/dl Magnesium Level 2.1 1.8-2.4 mg/dl Test 02/02/17 08:21 02/02/17 12:21 02/02/17 14:11 Range/Units Total Creatine Kinase 75 72 39-308 U/L Creatine Kinase MB 0.8 < 0.5 0.5-3.6 ng/ml Creatine Kinase MB Ratio 1.1 0-3.0 Troponin I 0.421 0.261 0-0.045 ng/ml Activated Partial Thromboplast Time 28.5 21.0-31.0 SECONDS Partial Thromboplastin Ratio 1.1
--- NOTE | 2017-02-02 16:56 | PROGRESS NOTE ---
DATE: 02/02/2017 CARDIOLOGY CONSULTATION FOLLOWUP NOTE The patient seen and examined post-cardiac catheterization. SUBJECTIVE: The patient tolerated the procedure well. Study demonstrated widely patent stents in the left anterior descending and left circumflex, moderate irregularities of the right coronary artery with greatest 40% at midvessel, left end diastolic pressure was normal. OBJECTIVE: On exam today, right radial puncture site is healing well. Blood pressure is 134/84, heart rate is 88. RECOMMENDATIONS: The patient will be continued on increased medical management for newly diagnosed coronary atherosclerosis and recent coronary interventions. PLAN: We will increase Toprol-XL to 25 mg twice per day evening dose this evening and add in lisinopril 2.5 mg for hypertension and anti-inflammatory effect. Continue current dosing of aspirin and clopidogrel as well as atorvastatin. Follow up with Dr. Singh as scheduled on 02/12/2017. Consultation for cardiac rehabilitation placed. The patient may be discharged to home later this evening after observation.
[2017-02-02] MEDS ORDERED: LSN25 PO (17:42)
[2017-02-02] MEDS ORDERED: NTRSLP4 SL (17:42)
[2017-02-02] MEDS ORDERED: TPRSR25 PO (17:42)
--- NOTE | 2017-02-02 17:47 | Discharge Instructions ---
Discharge Instructions Date of Service Feb 02, 2017. Admission Reason for Admission: Angina Pectoris W/ Normal Coronary Arteriogram Discharge Discharge Diagnosis / Problem: Recent NSTEMI with stent in MidCirc and LAD,CP s /p Recath with patent stent Discharge Goals Goal(s): Prevent Disease Progression Activity Recommendations Activity Limitations: resume your previous activity . Instructions / Follow-Up Instructions / Follow-Up Dr Marks on ,02/05/17 at 10:00AM and Dr Begum on ,02/12/17 at 9:45 AM Current Hospital Diet Patient's current hospital diet: AHA Diet (Heart Healthy) Discharge Diet Recommended Diet: AHA Diet (Heart Healthy) Pending Studies Studies pending at discharge: no Laboratory Results Lipid Panel Test 01/29/17 05:46 Range/Units Triglycerides Level 194 H 0-150 mg/dl Cholesterol Level 178 0-200 mg/dl HDL Cholesterol 24 mg/dl Cholesterol/HDL Ratio 7.4 LDL Cholesterol, Calculated 115 mg/dl Medical Emergencies . Who to Call and When: Medical Emergencies: If at any time you feel your situation is an emergency, please call 911 immediately. . Non-Emergent Contact Non-Emergency issues call your: Primary Care Provider . Past History Medical & Surgical History: (1) Chest pain (2) Angina pectoris with normal coronary arteriogram (3) ACS (acute coronary syndrome) (4) Stented coronary artery . "Provider Documentation" section prepared by Dc Pham. . VTE Core Measure Inpt VTE Proph given/why not?: Unfractionated heparin SQ
--- NOTE | 2017-02-03 08:37 | CARDIAC CATH REPORT ---
PRIMARY CARE PHYSICIAN: Dr. Rito Marks. PRIMARY CHILD DAY CARE PROVIDER: Dr. Raciel Singh. INDICATIONS: Chest pain at rest and with exertion, status post 2-vessel coronary stenting on 02/02/2017. PROCEDURE: Left heart catheterization, coronary angiography. BRIEF CARDIAC HISTORY: The patient is a 46-year-old male status post recent coronary intervention of the left anterior descending and left circumflex with drug-eluting stents to both vessels for crescendo angina, non-ST segment elevation myocardial infarction on 01/27/2017. Since hospital discharge patient has been experiencing low levels of chest discomfort; some of them became more acute on day of admission with associated diaphoresis and shortness of breath while ambulating at low-level workloads. Symptoms persisted. On ER presentation he was found to be in sinus rhythm with mildly elevated troponin of 0.98, which trended down during admission. EKG did not reflect acute findings. There were no signs of heart failure and anginal history by description would be class 3+. ACCESS: Right radial artery. CATHETERS: 6-Tamazight long glide sheath, 5-Tamazight brachial 3.5, 5-Tamazight JL 3.5, 5-Tamazight straight pigtail. CONTRAST: Nonionic x70 mL Optiray. IV FLUIDS: 43 mL normal saline. SEDATION: Start time was 15:10, end time was 15:35. SUPERVISING NURSE: Karen Waddell RN. MEDICATIONS: Versed 1 mg IV, fentanyl 12.5 mcg IV. MEDICATIONS: After intra-arterial sheath was placed received intra-arterial injection of nicardipine 300 mcg as well as an additional 150 mcg prior to sheath removal. After central access was gained with catheter 5000 units IV heparin was given. COMPLICATIONS: None. RADIATION EXPOSURE: Patient received 4 minutes of fluoroscopy; total mGy was 1580, DAP score was 10,649. RESULTS: CORONARY ANGIOGRAPHY: LEFT MAIN: The left main was long and trifurcated to give rise to left anterior descending. A moderately large ramus intermedius in the left circumflex. There is mild luminal irregularities in the left main and no obstruction. LEFT ANTERIOR DESCENDING: Left anterior descending is a long type 2 vessel, gives rise to a small diagonal and 2 small septal branches in its proximal third then courses to terminate at the apex. Within the left anterior descending there is area of stenting encompassing the origin of the diagonal and 2 septal branches. The stent is widely patent as are branch subbranches. The distal vessel has mild luminal irregularities. RAMUS INTERMEDIUS: This is a moderately large in caliber vessel which reaches to the apex and is free of disease. LEFT CIRCUMFLEX: Left circumflex consists of a single small posterolateral branch and a large multi-branching obtuse marginal. Within the circumflex there is an area of stenting in its mid vessel which is widely patent without dissection or thrombus at site of high grade stenosis prior. RIGHT CORONARY ARTERY: The right coronary artery is large and dominant in distribution, gives rise to a sinoatrial branch shortly after its origin, a right ventricular branch in its mid portion. At the AV groove it trifurcates into an accessory PDA, along the PDA and along the AV groove 2 small posterior ventricular branches. Within the right coronary artery, there is diffuse disease and ectasia in its proximal mid portion with a 40% narrowing in the mid portion of the vessel. In addition, there is a 30% taper at the trifurcation at the AV groove. This extends into the origin of the primary PDA narrowing it by 30% as well. LEFT VENTRICULAR ANGIOGRAPHY: LV angiography not performed. HEMODYNAMICS: Initial aortic root pressure was 123/83 with a mean of 102. LV pressure following coronary angiography is 133/6 with an LVEDP of 8-10. On pullback to the aortic root, there is no transaortic valve gradient. Final closing pressure is 126/76 with a mean of 99. FINAL IMPRESSIONS: 1. Widely patent coronary stents in the left anterior descending and left circumflex. 2. Moderate diffuse atherosclerosis. 3. Large dominant right coronary artery with moderate atherosclerosis and ectasia in its mid portion narrowing it by 40% with additional 30% at the AV groove. RECOMMENDATIONS: Continued aggressive medical therapy. Will increase beta jake, add EKATERINA inhibitor regimen and cardiac rehab has been recommended.
[2017-02-03] MEDS ORDERED: LISINOPRIL 2.5 MG TAB PO SCH (09:00)
--- NOTE | 2017-02-03 11:25 | Discharge Summary ---
Discharge Summary Date of Service Feb 03, 2017. Discharge Summary Admission Date: Feb 01, 2017 at 14:14 Discharge Date: Feb 02, 2017 Discharge Disposition: Home Principal Diagnosis: Recent NSTEMI with stent in MidCirc and LAD,CP s/p Recath with patent stent Secondary Diagnoses/Problems: Please see H&P and Hospital Progress note Procedures: Cardiac cath Consultations: Cardiology Medication Reconciliation New Medications: Lisinopril (Lisinopril) 2.5 Mg Tab 2.5 MG PO QAM for 30 Days, #30 TAB Nitroglycerin (Nitrostat) 0.4 Mg/1 Tab Subl 0.4 MG SL Q5M PRN for Chest Pain for 30 Days, #25 Changed Medications: Metoprolol Succinate (Metoprolol Succinate ER) 25 Mg Tabcr 25 MG PO BID for 30 Days, #60 TABS 2 Refills (Changed from: QAM; 30) Continued Medications: Aspirin (Aspirin EC Low Dose) 81 Mg Ectab 81 MG PO QAM for 30 Days, #30 TABS Atorvastatin (Atorvastatin Calcium) 40 Mg Tab 80 MG PO QAM for 30 Days, #60 TAB 2 Refills Clopidogrel Bisulfate (Clopidogrel) 75 Mg Tab 75 MG PO QAM for 30 Days, #30 TAB 2 Refills Admission Information HPI (per Admitting provider): DATE OF ADMISSION: 02/01/2017 PRIMARY CARE PHYSICIAN: Dr. Marks. CHIEF COMPLAINT: Typical angina following one mile walk. HISTORY OF PRESENT COMPLAINT: He is a 46-year-old male with significant past medical history including obesity, sleep apnea, hyperlipidemia, stress and anxiety apparently has had non-ST elevation [place] on and he had a cardiac catheterization on and placed a stent in mid circumflex and also LAD and went home late . He has been taking aspirin and Plavix since then. He complains to have some discomfort in that area since discharge, but today he went to walk outside and he walked about 1 mile. After that, he complained to have more chest pain in the precordial area associated with sweating and the pain radiated to the left shoulder and left upper extremity up to the fingers. From that point, he came to the Emergency Room. In the ER, he was still having some pain and he was very anxious but no sweating and he was hemodynamically stable. His apparent blood test showed a troponin of 1.12, which was 1.4 on discharge from the hospital and EKG did not show any significant change. From that point, he was advised admission and also heparin, nitroglycerin was added to his medication and also given morphine for anxiety. Denies to have any headache, any blurred vision, any numbness or tingling in the extremities. Did not have any cough, any phlegm, any fever or chills. No shortness of breath. No wheezing. No abdominal pain, nausea, vomiting. Denies to have any problem with urine and/or bowel habit and does not have any numbness or tingling in the lower extremities or weakness involving any side. PAST MEDICAL HISTORY: Significant for obesity and strong family history of cardiac disease, both of his parents had heart disease and of heart problems. Stress with anxiety, sleep apnea and does not take any CPAP or BiPAP and hyperlipidemia. PAST SURGICAL HISTORY: Tonsillectomy as a child, palatal surgery in 2011 and recent cardiac catheterization on January status post stent in mid circumflex and LAD. FAMILY HISTORY: Significant that father and mother and sister have heart disorder. SOCIAL HISTORY: He is single. He quit smoking in 2000. He does not drink any alcohol and he has been reasonably ambulant. ALLERGIES: NKDA. MEDICATIONS: He has been on aspirin and Plavix and also atorvastatin 80 mg daily, and metoprolol succinate 25 mg in the morning. REVIEW OF SYSTEMS: Other systems reviewed are unremarkable except those mentioned in history of present complaint. PHYSICAL EXAMINATION: GENERAL: On examination in the Emergency Room, he was very anxious, not having any acute distress. VITAL SIGNS: Temperature 36.7, pulse of 81, blood pressure 137/89 saturation 96% on room air. HEENT: Unremarkable. NECK: Supple, no JVD, no bruit. CHEST: Clear to auscultate bilaterally. No chest wall tenderness. HEART: S1, S2 regular. No murmur. ABDOMEN: Soft, benign, nontender, no organomegaly. Bowel sounds present. EXTREMITIES: Negative for any edema. MUSCULOSKELETAL: Did not show any acute arthritis involving any joint. CENTRAL NERVOUS SYSTEM: He is alert, awake, oriented x3 and no focal sensory and/or motor deficit appreciated. LABORATORY DATA: Noted today - white count was 8.61, H&H 15.9/48.2, platelets was 330. Sodium 137, potassium 4.0, chloride 102, carbon dioxide 28, BUN 12, creatinine 1.0, random glucose 101. LFTs normal. CK, CK-MB normal. Troponin was 1.120 and his troponin on was 1.4. Lipase normal. IMAGING DATA: EKG was in sinus rhythm at the rate of 81 per minute, normal axis, incomplete right bundle without any significant ST-T wave changes. Chest x-ray reported as no acute cardiopulmonary process. IMPRESSION AND PLAN: 1. Angina status post recent cardiac stent on of this month. The patient will be admitted to telemetry unit, serial cardiac enzymes to rule out acute coronary syndrome. He was started with nitro paste to relieve angina and also a small dose of morphine for ongoing anxiety. He was started with intravenous heparin on top of aspirin and Plavix that he has been getting. He will continue with his beta jake. Cardiology evaluation while in the hospital. 2. Anxiety. He has more anxiety, now he will be given a small dose of morphine to pain control and also from relief from anxiety. 3. Sleep apnea. He does not use any CPAP and/or BIPAP at home. Will observe in the hospital. 4. Hyperlipidemia. It was borderline, but he does have low HDL cholesterol, he has been on atorvastatin 80 mg, will continue with that. 5. Gastrointestinal prophylaxis. Will add proton pump inhibitor. 6. Deep venous thrombosis prophylaxis will be on heparin. CODE STATUS: Full code. In my clinical judgment, the beneficiary meets criteria as per CMS for 2-midnight stay in the hospital. Hospital Course Angina Recent percutaneous coronary intervention to the mid circumflex and LAD Serial Michaela are negative for any ACS Has been on IV Heparin,and Nitropaste Also on BB and statin Appreciate Cardiology input S/P Cardiac cath: patent Stents and no significant Coronary stenosis Likely discharge tomorrow Anxiety. He has more anxiety, now he will be given a small dose of morphine to pain control and also from relief from anxiety. Sleep apnea. He does not use any CPAP and/or BIPAP at home. Will, observe in the hospital. Hyperlipidemia. It was borderline, but he does have low HDL cholesterol, he has been on atorvastatin 80 mg, will continue with that. Gastrointestinal prophylaxis. Will add proton pump inhibitor. Deep venous thrombosis prophylaxis will be on heparin. Total time spent on discharge = 35 minutes This includes examination of the patient, discharge planning, medication reconciliation, and communication with other providers. Discharge Instructions Date of Service Feb 02, 2017. Admission Reason for Admission: Angina Pectoris W/ Normal Coronary Arteriogram Discharge Discharge Diagnosis / Problem: Recent NSTEMI with stent in MidCirc and LAD,CP s /p Recath with patent stent Discharge Goals Goal(s): Prevent Disease Progression Activity Recommendations Activity Limitations: resume your previous activity . Instructions / Follow-Up Instructions / Follow-Up Dr Marks on ,02/05/17 at 10:00AM and Dr Begum on ,02/12/17 at 9:45 AM Current Hospital Diet Patient's current hospital diet: AHA Diet (Heart Healthy) Discharge Diet Recommended Diet: AHA Diet (Heart Healthy) Pending Studies Studies pending at discharge: no Laboratory Results Lipid Panel Test 01/29/17 05:46 Range/Units Triglycerides Level 194 H 0-150 mg/dl Cholesterol Level 178 0-200 mg/dl HDL Cholesterol 24 mg/dl Cholesterol/HDL Ratio 7.4 LDL Cholesterol, Calculated 115 mg/dl Medical Emergencies . Who to Call and When: Medical Emergencies: If at any time you feel your situation is an emergency, please call 911 immediately. . Non-Emergent Contact Non-Emergency issues call your: Primary Care Provider . Past History Medical & Surgical History: (1) Chest pain (2) Angina pectoris with normal coronary arteriogram (3) ACS (acute coronary syndrome) (4) Stented coronary artery . "Provider Documentation" section prepared by Dc Pham. . VTE Core Measure Inpt VTE Proph given/why not?: Unfractionated heparin SQ <Electronically signed by Dc Pham M.D.> Signed: 02/02/17 4331 Additional Copies To Keily Marks M.D. (MEDICAL)
== END 2017-02-02 22:50 | disposition home or self-care (01) | DRG 282 ==
LOC: C.EDB 10:39 → C.2T 14:14 → ENRESERV 14:44
PROVIDERS: ADMIT Internal Medicine; ATTEND Internal Medicine
PROC: 4A023N7 Measurement of Cardiac Sampling and Pressure, Left Heart, Percutaneous Approach (ICD-10-PCS; principal; 2017-02-02 15:09)
PROC: B211YZZ Fluoroscopy of Multiple Coronary Arteries using Other Contrast (ICD-10-PCS; principal; 2017-02-02 15:09)
DX: I21.4 Non-ST elevation (NSTEMI) myocardial infarction (principal); I25.119 Atherosclerotic heart disease of native coronary artery with unspecified angina pectoris; F41.9 Anxiety disorder, unspecified; E78.5 Hyperlipidemia, unspecified; G47.33 Obstructive sleep apnea (adult) (pediatric); E66.9 Obesity, unspecified; Z51.81 Encounter for therapeutic drug level monitoring; Z79.899 Other long term (current) drug therapy; Z95.5 Presence of coronary angioplasty implant and graft; Z68.36 Body mass index [BMI] 36.0-36.9, adult; Z87.891 Personal history of nicotine dependence; Z82.49 Family history of ischemic heart disease and other diseases of the circulatory system

== ENCOUNTER 2018-11-21 18:07 | Observation (INO) ==
--- OUTSIDE RECORDS SUMMARY | 2018-11-21 18:11 | External Medical Summary | Continuity of Care Document ---
:1970 Author Name Valerie June Address Unavailable Unavailable , Care Team Providers Name Role Phone Ronaldo June Unavailable [email or web address] [email or web address], UNKNOWN Unavailable Unavailable Problems Active medical history not documented Allergies and Adverse Reactions Allergy history not documented Medications Medications not documented Procedures Procedures not documented Immunizations Immunizations not documented Plan of Treatment Planned Observations Planned Goals not documented Results No Known Results Results not documented
[2018-11-21] MEDS ORDERED: NITROGLYCERIN 2% OINTMENT 30GM TUBE EXT STA (18:23)
[2018-11-21 18:50] LABS: Basophils # (auto) 0.01 K/uL (0-0.2); Basophils % (auto) 0.1 %; Eosinophils # (auto) 0.23 K/uL (0-0.5); Eosinophils % (auto) 3.3 %; Hematocrit (blood only) 40.7 % (42-52); Immature Granulocytes # (auto) 0.02 K/uL (0.00-0.02); Immature Granulocytes % (auto) 0.3 %; Lymphocytes % (auto) 24.3 %; Mean Corpuscular Hgb Conc 34.4 g/dL (32-36); Mean Platelet Volume 9.6 fL (7.4-10.4); Monocytes # (auto) 0.32 K/uL (0.11-0.59); Monocytes % (auto) 4.6 %; Neutrophils # (auto) 4.73 K/uL (1.4-6.5); Neutrophils % (auto) 67.4 %; Platelet Count 240 K/uL (130-400); RDW Coefficient of Variation 12.9 % (11.5-14.5); RDW Standard Deviation 40.7 fL (36.4-46.3); Red Blood Count 4.73 M/uL (4.7-6.1); White Blood Count 7.01 K/uL (4.8-10.8)
--- NOTE | 2018-11-21 18:53 | XRay Report ---
XR chest 1V portable CLINICAL HISTORY: Chest Pain COMPARISON STUDY: Chest radiograph February 01, 2017. Chest CT January 29, 2017. FINDINGS: There is no pneumothorax or pleural effusion. There is no consolidation or evidence for pul monary edema. There is mild cardiomegaly. This appears unchanged. IMPRESSION: No acute cardiopulmonary findings. Electronically signed by: Oleg Urrutia M.D. 11/21/2018 6:51 PM
[2018-11-21 19:06] LABS: Albumin Level 3.4 gm/dl (3.4-5.0); BUN Creatinine Ratio 9.8 (10-20); Calcium 8.8 mg/dl (8.5-10.1); Creatinine Clr Calc Pharmacy 165.5 ml/min; Est GFR (African American) 122.9; Potassium 3.8 mmol/L (3.5-5.1)
[2018-11-21 19:09] LABS: Albumin Globulin Ratio 1.1 (0.9-2); Bilirubin,Total 0.2 mg/dl (0.2-1); Globulin 3.1 gm/dl (2.5-4.0); Total Protein 6.5 gm/dl (6.4-8.2)
--- NOTE | 2018-11-21 19:15 | Emergency Department Note ---
Entered by Virginia Walton acting as a scribe for History of Present Illness General Chief complaint: Chest Pain Stated complaint: OFF FEELING, ACHINESS IS CHEST, HX OF HEART ATTACK Source: patient Mode of arrival: ambulatory Limitations: no limitations History of Present Illness Provider complaint: chest pain Onset (ago): day(s) (a few) Location: chest Pain Consistency: + intermittent Maximum Pain Intensity: 10 Current Pain Intensity: 3 Quality: + aching Exacerbated By: + none Associated symptoms: + denies other symptoms (lightheaded, abd pain, leg swelling) and + other (diarrhea); no cough, no diaphoresis, no fever/chills and no shortness of breath The patient is a 48 year old male with a past medical history of an IA who presents to the ER with complaints of intermittent chest pain that began a few days ago. The patient reports that since having 2 stents placed, he has been exp eriencing occasional chest pain since his stents were placed. He rates his current pain a 4/10 and states that it radiates into his left shoulder. He describes the pain as an ache and denies anything making it worse. He explains that he has been hypertensive and anxious today, which prompted his visit. He stated he did not feel right and could not really specify how. He states he could not get comfortable. He denies any diaphoresis, shortness of breath or lightheadedness. He denies taking any Viagra or similar medications recently. He also denies any fevers or coughs but notes he has had diarrhea. He denies any abdominal pain or leg swelling or pain. He admits to being a former smoker but explains he quit in 2000. Home Medications Home Medications Medication Instructions Recorded Confirmed Type aspirin 81 mg PO QAM 11/21/18 11/21/18 History atorvastatin 80 mg PO QPM 11/21/18 11/21/18 History clopidogrel 75 mg PO QAM 11/21/18 11/21/18 History escitalopram oxalate 5 mg PO QPM 11/21/18 11/21/18 History lisinopril 2.5 mg PO QAM 11/21/18 11/21/18 History metoprolol succinate 50 mg PO BID 11/21/18 11/21/18 History Allergies Allergy/AdvReac Type Severity Reaction Status Date / Time No Known Allergies Allergy Unverified 02/01/17 11:11 Past Med/Surg History Medical History History of IA (myocardial infarction) Angina pectoris with normal coronary arteriogram Surgical History History of heart artery stent Social History Preferred Language: Swazi Feels Safe at Home: Yes Smoking Status: Former smoker Review of Systems See HPI for pertinent positives & negatives. and A total of 10 systems reviewed and were otherwise negative Physical Exam Vital Signs Vital Signs - 24 hr 11/21/18 18:10 11/21/18 18:16 11/21/18 18:29 Temperature 37.4 C Temperature Source Oral Sepsis Recent Fever Within 48 Hours No Sepsis New/Unexplained Change in Mental Status No Sepsis Action Taken by Nursing No Action Required Pulse Rate 96 H 96 H Pulse Rhythm Regular Respiratory Rate 18 18 Respiratory Depth Normal Normal Blood Pressure 160/100 H Blood Pressure Mean 120 Blood Pressure Position Sitting Pulse Oximetry 98 98 98 Oxygen Delivery Method Room Air Room Air Room Air 11/21/18 18:33 11/21/18 18:48 Temperature Temperature Source Sepsis Recent Fever Within 48 Hours Sepsis New/Unexplained Change in Mental Status Sepsis Action Taken by Nursing Pulse Rate 95 H 89 Pulse Rhythm Respiratory Rate 17 18 Respiratory Depth Blood Pressure 132/84 Blood Pressure Mean 100 Blood Pressure Position Pulse Oximetry 97 Oxygen Delivery Method Room Air Constitutional: Vital signs reviewed. Eyes: Pupils are equal round reactive to light. Conjunctiva are noninjected. ENT: Pharynx is clear without erythema or exudate. Mucous membranes are moist. Neck supple without meningeal signs. Respiratory: Clear to auscultation bilaterally. Breath sounds are equal bilaterally. Cardiovascular: Regular rate and rhythm. No rubs or gallops. GI: Soft, nondistended and nontender. Bowel sounds are present. Musculoskeletal: No peripheral edema. No lower extremity tenderness. Integumentary: No cyanosis. Neurological: The patient is awake and alert. No focal deficits. Psychiatric: Anxious appearing. Course 1815: Past medical records reviewed. The patient was evaluated in room A11B. A complete history and physical examination was performed. 1838: He has not received NTG. IV was just placed. 1852: He states he has no chest pain at this time. He is less anxious. 1899: I updated the patient on his results. I recommended hospitalization and he is agreeable. We are paging the [facility] Hospitalist. 1902: Emilie Mejía PA-C [facility] Hospitalist. She, in conjunction with Dr. Kc, will evaluate the patient for further management. Administered Medications Discontinued Medications Nitroglycerin (Nitro-Bid 2%) 1 inch EXT NOW STA Stop: 11/21/18 18:24 Last Admin: 11/21/18 18:48 Dose: 1 inch Documented by: [id number] Medical Decision Making Differential Diagnosis Differential diagnosis includes: IA, unstable angina. GERD, panic attack, and pleurisy. Medical Records Attestation: I reviewed the patient's medical records. I did perform a limited focused review of portions of the patient's old chart on the electronic medical record. The patient had a cardiac catheterization in 2017 which showed moderate diffuse atherosclerosis and some narrowing of the coronary artery. He had 2 stents placed in the LAD. Home Medications Current Medication List: was personally reviewed by me Laboratory Data Attestation: I reviewed the patient's lab results. Result diagrams: 11/21/18 18:40 11/21/18 18:40 Lab Results 11/21/18 11/21/18 11/21/18 Range/Units 18:40 18:40 18:44 WBC 7.01 (4.8-10.8) K/uL RBC 4.73 (4.7-6.1) M/uL Hgb 14.0 (14.0-18.0) g/dL Hct 40.7 L (42-52) % MCV 86.0 (80-100) fL MCH 29.6 (25-34) pg MCHC 34.4 (32-36) g/dL RDW Std Deviation 40.7 (36.4-46.3) fL RDW Coeff of Joselyn 12.9 (11.5-14.5) % Plt Count 240 (130-400) K/uL MPV 9.6 (7.4-10.4) fL Immature Gran % (Auto) 0.3 % Neut % (Auto) 67.4 % Lymph % (Auto) 24.3 % [place] % (Auto) 4.6 % Eos % (Auto) 3.3 % Baso % (Auto) 0.1 % Immature Gran # (Auto) 0.02 (0.00-0.02) K/uL Neut # (Auto) 4.73 (1.4-6.5) K/uL Lymph # (Auto) 1.70 (1.2-3.4) K/uL [place] # (Auto) 0.32 (0.11-0.59) K/uL Eos # (Auto) 0.23 (0-0.5) K/uL Baso # (Auto) 0.01 (0-0.2) K/uL Sodium 143 (136-145) mmol/L Potassium 3.8 (3.5-5.1) mmol/L Chloride 111 H (98-107) mmol/L Carbon Dioxide 24 (21-32) mmol/L Anion Gap 8.0 (3-11) BUN 8 (7-18) mg/dl Creatinine 0.82 (0.6-1.4) mg/dl Est Cr Clr Drug Dosing 165.5 ml/min Est GFR ( Amer) 122.9 Est GFR (Non-Af Amer) 106.0 BUN/Creatinine Ratio 9.8 L (10-20) Glucose 151 H (70-99) mg/dl Calcium 8.8 (8.5-10.1) mg/dl Total Bilirubin 0.2 (0.2-1) mg/dl AST 22 (15-37) U/L ALT 54 (12-78) U/L Alkaline Phosphatase 89 (45-117) U/L POC Troponin I < 0.03 (0-0.045) ng/ml Total Protein 6.5 (6.4-8.2) gm/dl Albumin 3.4 (3.4-5.0) gm/dl Globulin 3.1 (2.5-4.0) gm/dl Albumin/Globulin Ratio 1.1 (0.9-2) Imaging Data Radiologist's Impression: Radiology results as stated below per my review and the radiologist's interpretation: XR chest 1V portable CLINICAL HISTORY: Chest Pain COMPARISON STUDY: Chest radiograph February 01, 2017. Chest CT January 29, 2017. FINDINGS: There is no pneumothorax or pleural effusion. There is no consolidation or evidence for pulmonary edema. There is mild cardiomegaly. This appears unchanged. IMPRESSION: No acute cardiopulmonary findings. Electronically signed by: Oleg Urrutia M.D. 11/21/2018 6:51 PM ECG Data Attestation: I personally reviewed and interpreted this ECG as follows: Indication: chest pain Rate (beats per minute): 93 Rhythm: normal sinus Findings: + RBBB (incomplete); no ST elevation Blood Pressure Blood Pressure Findings: Elevated blood pressure Blood Pressure Disposition: Referred to patients primary care provider MDM Narrative I did evaluate the patient as noted above. The patient is presenting with chest discomfort on the left side rating to his left shoulder. He has a prior history of IA with stent x2. IV access was established. The patient was placed on a continuous rn cardiac. I did treat him with nitroglycerin paste. I did order and personally review the patient's 12-lead EKG as described above. There is no evidence of acute ischemia. I did order and personally reviewed the images of the patient's chest x-ray as described above. This is unremarkable. I did order and review the patient's blood work as noted in the electronic medical record. Troponin is negative. White count is not elevated. He is not anemic. I did reassess the patient. He is not having any chest pain at this time. He is no longer anxious. I did discuss the test results with him. I did recommend hospitalization for repeat cardiac enzymes and potential stress testing in the morning. He was agreeable with this plan and I did discuss the case with the hospitalist and spring encaser. Impression & Plan Left-sided chest pain Discharge Plan Visit Data Chief Complaint: Chest Pain Stated Complaint: OFF FEELING, ACHINESS IS CHEST, HX OF HEART ATTACK ED Provider: Jorge Bailey Discharge Problem: Left-sided chest pain Patient Disposition: Being Evaluated by Hospitalist Forms Stand Alone Forms: Call Back Authorization, My [facility] Prescriptions Prescriptions: No Action atorvastatin 80 mg tablet 80 mg PO QPM RF: 0 metoprolol succinate 100 mg tablet extended release 24 hr 50 mg PO BID RF: 0 clopidogrel 75 mg tablet 75 mg PO QAM RF: 0 aspirin 81 mg Tablet,Delayed Release (Dr/Ec) 81 mg PO QAM RF: 0 lisinopril 2.5 mg tablet 2.5 mg PO QAM RF: 0 escitalopram oxalate 5 mg tablet 5 mg PO QPM RF: 0 Referrals Referrals: Jorge Manning MD [Primary Care Provider] - The scribe's documentation has been prepared under my direction and personally reviewed by me in its entirety. I confirm that the note above accurately reflects all work, treatment, procedures, and medical decision making performed by me.
--- NOTE | 2018-11-21 19:55 | History & Physical Report ---
Date of Service November 21, 2018 Assessment & Plan (1) Left-sided chest pain: This is a 48-year-old male with a significant past medical history of CAD status post DANA x2 in mid LAD and circumflex in 01/2017, HTN, HLD, THEODORA s/p surgery, anxiety who presents to [facility] secondary to chest pain x3 days. In ED initial troponin was negative, ecg unchanged Received Nitropaste without relief of sx CBC, CMP relatively unremarkable except glucose 150 Sx seem likely gastrointestinal in origin and or anxiety Less likely cardiac with history provided by patient; but given PMH of CAD with stent placement and Heart Score 4 will admit under observation admit to telemetry Zantac 150mg po x 1 now if no improvement will also consider administering ativan cycle troponins x 3 repeat ecg lipid panel and A1C in a.m. consult cardiology Dr. Singh echocardiogram NPO after midnight in event Stress test performed in morning (2) CAD (coronary artery disease): 01/29/2017 N STEMI -two-vessel CAD 99% mid circumflex and 90% mid LAD with DANA to mid circumflex and mid LAD. Residual moderate to mid circumflex disease managed medically Plan as above continue ASA, Plavix, Statin, Metoprolol and Lisinopril (3) HTN (hypertension): blood pressure elevated upon presentation, likely pain/anxiety related continue lisinopril and metoprolol (4) HLD (hyperlipidemia): continue high intensity statin fasting lipid panel in a.m. last chol panel 05/2018 LDL 83, Trig 176, total chol 124 (5) Anxiety: continue lexapro monitor add prn lorazepam if no improvement of sx with zantac (6) DVT prophylaxis: SCDS/TEDS Pt also on plavix and ASA Disposition: Discharge to home when able Follow up: PCP Dr. Manning upon discharge Patient was seen and examined in collaboration with Dr. Kc, please see addendum History of Present Illness Chief Complaint: Chest pain x 3 days. Primary Care Provider: Jorge Manning MD This is a 48-year-old male with a significant past medical history of CAD status post DANA x2 in mid LAD and circumflex in 01/2017, HTN, HLD, THEODORA s/p surgery, anxiety who presents to [facility] secondary to chest pain x3 days. Patient elicits chest pain began a few days ago, unsure what he was doing at the time. Feels chest pain came on rather gradually. Chest pain located left anterior chest wall with radiation to left shoulder. Describes it as an ache, rated 2/10, tried Pepto-Bismol and nitro without relief. Symptoms do not appear to be exertional or associated with shortness of breath, palpitations. Feels symptoms worsen with food. Pain unchanged with deep breathing. Last meal approximately 3 hours ago was chicken fingers which likely exacerbated symptoms. He opted to present to ER today because he, "just was not feeling quite right." He also notes he developed anxiety after his prior NSTEMI which resulted in him starting Lexapro. After his initial cardiac ca theterization in which he required stents, he represented back to the ER secondary to chest pain. He underwent an additional cardiac cath which was otherwise normal with patent stents and was felt to be anxiety per pt. He states he does overall feel anxious today and describes it as like a, "panic attack." Over the past 3 days he has still remained active including using elliptical as well as doing yard work. He did not develop any worsening of symptoms shortness of breath or diaphoresis during these activities. He denies any recent illness, fever, chills, sweats, lightheadedness, dizziness, syncope, orthopnea, PND, Edema, nausea, vomiting, abdominal pain, change in urination. He has been having diarrhea for the past 2 days. He has had approx 30lb weight gain in past year. Allergies Allergy/AdvReac Type Severity Reaction Status Date / Time No Known Allergies Allergy Unverified 02/01/17 11:11 Home Medications Home Medications Medication Instructions Recorded Confirmed Type aspirin 81 mg PO QAM 11/21/18 11/21/18 History atorvastatin 80 mg PO QPM 11/21/18 11/21/18 History clopidogrel 75 mg PO QAM 11/21/18 11/21/18 History escitalopram oxalate 5 mg PO QPM 11/21/18 11/21/18 History lisinopril 2.5 mg PO QAM 11/21/18 11/21/18 History metoprolol succinate 50 mg PO BID 11/21/18 11/21/18 History Past Med/Surg History Medical History HTN (hypertension) (Chronic) HLD (hyperlipidemia) (Chronic) THEODORA (obstructive sleep apnea) (Chronic) Anxiety (Chronic) CAD (coronary artery disease) (Chronic) History of NH (myocardial infarction) (Chronic) Surgical History History of tonsillectomy (Chronic) History of cardiac catheterization (Chronic) 01/29/2017 N STEMI -two-vessel CAD 99% mid circumflex and 90% mid LAD with DANA to mid circumflex and mid LAD. Residual moderate to mid circumflex disease managed medically History of uvulopalatopharyngoplasty (Chronic) History of heart artery stent (Chronic) Family History Mother Coronary heart disease CAD S/P percutaneous coronary angioplasty History of heart bypass surgery Father Coronary heart disease Other Family history of premature CAD Social History Preferred Language: Marshallese Communication Ability: Effective Lead Installer Required: No Beliefs That Will Affect Care: None marital status: Current Living Situation: Spouse Other Information That Helps Us Care for You: No Feels Safe at Home: Yes Safety Concerns: Feels Safe At This Time Smoking Status: Former smoker Years Smoked: 8 Cigarettes Per Day: 1ppd Smoking End Date: 2000 Number of Years Since Quit: 18 Second Hand Exposure: No Hx Alcohol Use: Yes Alcohol type: beer Hx Substance Use: No Review of Systems Review of Systems: As noted per HPI, 10 systems reviewed and negative unless noted above. Physical Exam Physical Exam: Gen: WD/WN, Obese, M, NAD, sitting up in bed, pleasant but appears anxious, conversing easily Head: Normocephalic, Atraumatic Eyes: Sclera normal, no conjunctival injection, PERRLA, EOMI ENT: Gross hearing intact, normal pharynx, mucous membranes moist Neck: supple, no adenopathy, No JVD, no bruit, Resp: Clear to auscultation b/l, no wheeze, rales, rhonchi. Normal insp/exp effort, no accessory muscle use CV: Regular rate, regular rhythm, no murmur, rub, gallop, or ectopy, chest pain not reproducible Abd: obese protuberant abdomen, +BS x 4, soft, nontender, nondistended Musculoskeletal: moves extremities active rom x 4, strength intact, good maintenance associate strength Extremities: No edema bilaterally Skin: warm, moist, no rash, negative turgor, cap refill < 2sec Neuro: Alert and oriented x 3, speech normal, good mood/affect, cran nerve 2-12 intact grossly : deferred Results & Data Vital Signs (Past 12 Hours) Vital Signs Temp Pulse Resp BP Pulse Ox 11/21/18 18:48 89 18 132/84 97 11/21/18 18:33 95 H 17 11/21/18 18:29 96 H 18 98 11/21/18 18:16 98 11/21/18 18:10 37.4 C 96 H 18 160/100 H 98 Laboratory Results Short CBC 11/21/18 Range/Units 18:40 WBC 7.01 (4.8-10.8) K/uL Hgb 14.0 (14.0-18.0) g/dL Hct 40.7 L (42-52) % Plt Count 240 (130-400) K/uL BMP 11/21/18 18:40 Sodium 143 Potassium 3.8 Chloride 111 H Carbon Dioxide 24 BUN 8 Creatinine 0.82 Glucose 151 H Calcium 8.8 Liver Function 11/21/18 Range/Units 18:40 Total Bilirubin 0.2 (0.2-1) mg/dl AST 22 (15-37) U/L ALT 54 (12-78) U/L Alkaline Phosphatase 89 (45-117) U/L Albumin 3.4 (3.4-5.0) gm/dl Diagnostic Findings CXR: IMPRESSION: No acute cardiopulmonary findings. Medications Administered Discontinued Medications Nitroglycerin (Nitro-Bid 2%) 1 inch EXT NOW STA Stop: 11/21/18 18:24 Last Admin: 11/21/18 18:48 Dose: 1 inch Documented by: [id number] Ranitidine HCl (Zantac) 150 mg PO NOW STA Stop: 11/21/18 19:47 Last Admin: 11/21/18 19:51 Dose: 150 mg Documented by: [id number] Code Status & VTE Plan Code Status Full Code VTE Prophylaxis Plan VTE Prophylaxis will be ordered: Yes Supervising Physician Co-Signing Physician Notes Care coordinated with Emilie Mejía PA-C. Agree with above note. Patient seen and examined. Please refer to her notes for full details. Vital signs reviewed. Physical exam: General exam: Alert and oriented. Not in acute distress. CVS: S1 and S2 heard, regular rate and rhythm, no murmurs. RS: Clear to auscultation, no wheezing or crackles. ABD: Soft, bowel sounds present, nontender, no distention. ACCOUNTS PAYABLE ACCOUNTANT: Nonfocal. EXT: No edema, no erythema. Labs: Reviewed. Assessment and plan: Chest pain hx of cad s/p stent pain ore after eating currently relieved with zantac but because of risk factors monitor in tele serial ce a,nd cardio consult in am. Other diagnosis and plan of care as per []. Mike rubi MD.
[2018-11-21] MEDS ORDERED: ALUMINUM/MAGNESIUM SUSP 30 ML UDC PO PRN (20:34)
[2018-11-21] MEDS ORDERED: MAGNESIUM HYDROXIDE SUSP 30 ML UDC PO PRN (20:34)
[2018-11-21] MEDS ORDERED: ONDANSETRON INJ 2 MG/ML 2 ML VIAL IV PRN (20:34)
[2018-11-21] MEDS ORDERED: NITROGLYCERIN SL 0.4 MG/TAB TAB SL PRN (20:34)
[2018-11-21] MEDS ORDERED: POLYETHYLENE (MIRALAX) 17 GM PACK PO PRN (20:34)
[2018-11-21] MEDS ORDERED: ACETAMINOPHEN 325 MG TAB PO PRN (20:34)
[2018-11-22 06:30] LABS: Hematocrit (blood only) 38.2 % (42-52); Mean Corpuscular Volume 86.4 fL (80-100); Mean Platelet Volume 9.7 fL (7.4-10.4); Platelet Count 243 K/uL (130-400); RDW Coefficient of Variation 12.8 % (11.5-14.5); RDW Standard Deviation 41.1 fL (36.4-46.3); Red Blood Count 4.42 M/uL (4.7-6.1); White Blood Count 9.31 K/uL (4.8-10.8)
[2018-11-22 06:37] LABS: Estimated Average Glucose 114 mg/dl; Hemoglobin A1C 5.6 % (4.5-5.6)
[2018-11-22 06:51] LABS: Calcium 8.4 mg/dl (8.5-10.1); Creatinine Clr Calc Pharmacy 171.4 ml/min; Est GFR (African American) 124.8; Est GFR (Non-African American) 107.7; Potassium 3.7 mmol/L (3.5-5.1)
[2018-11-22] MEDS ORDERED: ASPIRIN 81 MG ECTAB PO SCH (09:00)
[2018-11-22] MEDS ORDERED: LISINOPRIL 2.5 MG TAB PO SCH (09:00)
[2018-11-22] MEDS ORDERED: METOPROLOL SUCC 50MG EXT REL TAB PO SCH (09:00)
[2018-11-22] MEDS ORDERED: CLOPIDOGREL BISULFATE 75 MG TAB PO SCH (09:00)
--- NOTE | 2018-11-22 09:09 | Cardiology Consultation ---
Date of Consultation November 22, 2018 Assessment & Plan (1) Left-sided chest pain: (2) History of NE (myocardial infarction): (3) History of heart artery stent: (4) Dyslipidemia, goal LDL below 70: (5) HTN (hypertension): Patient admitted with atypical chest discomfort dissimilar from prior angina. ECG and cardiac enzymes within normal limits. Review of resting 2D transthoracic echocardiogram performed this a.m. demonstrates no regional wall motion on normalities. Previously reported posterior wall motion abnormality has resolved. Currently pain-free. No dysrhythmias on telemetry. Recommend exercise stress echocardiography for further risk stratification. No medication changes. Further recommendations pending results of stress test. History of Present Illness Reason for Consultation: Chest pain, history of coronary disease Requesting Physician: Dr. Mike Kc Attending Physician: Malu Serrano MD History of Present Illness 48-year-old patient presented emergency department with chest discomfort. Pain unrelieved with sublingual nitroglycerin or NTP. Describes a mid substernal and left-sided chest ache beginning after performing yard work approximately 2 days ago. The ache is described as mild. No associated shortness of breath. Discomfort seems to wax and wane. Not associate with exertion or activity. Denies orthopnea, PND, lower extremity edema, or claudication. No palpitations, lightheadedness, dizziness, syncope, or near syncope. Compliant with current medications. Offers no other concerns/complaints at this time. Cardiac history: Admitted to [facility] 01/29/2017 with NSTEMI. Carries strong family history of premature coronary artery disease as listed below. He was taken urgently to the cardiac catheterization lab where coronary angiography demonstrated significant 2 vessel CAD, including 99% mid circumflex and 90% mid LAD stenosis. Otherwise mild to moderate nonobstructive coronary disease noted with most significant stenosis being a 40% mid RCA. Patient was successfully intervened with a drug-eluting stent to the mid circumflex as well as drug- eluting stent to the mid LAD. Echocardiogram performed during hospitalization demonstrated posterior wall hypokinesis with preserved LV systolic function. No significant valvular disease. The patient was discharged home 01/30/2017 then returned to the emergency department 02/01/17 with recurrent chest discomfort. Repeat cardiac catheterization was performed February 02, 2017. Study demonstrated widely patent left circumflex and LAD stents. Allergies Allergy/AdvReac Type Severity Reaction Status Date / Time No Known Allergies Allergy Unverified 02/01/17 11:11 Home Medications Home Medications Medication Instructions Recorded Confirmed Type aspirin 81 mg PO QAM 11/21/18 11/21/18 History atorvastatin 80 mg PO QPM 11/21/18 11/21/18 History clopidogrel 75 mg PO QAM 11/21/18 11/21/18 History escitalopram oxalate 5 mg PO QPM 11/21/18 11/21/18 History lisinopril 2.5 mg PO QAM 11/21/18 11/21/18 History metoprolol succinate 50 mg PO BID 11/21/18 11/21/18 History Patient History Medical History HTN (hypertension) (Chronic) HLD (hyperlipidemia) (Chronic) THEODORA (obstructive sleep apnea) (Chronic) Anxiety (Chronic) CAD (coronary artery disease) (Chronic) History of NE (myocardial infarction) (Chronic) Surgical History History of tonsillectomy (Chronic) History of cardiac catheterization (Chronic) 01/29/2017 N STEMI -two-vessel CAD 99% mid circumflex and 90% mid LAD with DANA to mid circumflex and mid LAD. Residual moderate to mid circumflex disease managed medically History of uvulopalatopharyngoplasty (Chronic) History of heart artery stent (Chronic) Family History Mother Coronary heart disease CAD S/P percutaneous coronary angioplasty History of heart bypass surgery Father Coronary heart disease Other Family history of premature CAD Social History Preferred Language: Kenyan Communication Ability: Effective Cmo & President Required: No Beliefs That Will Affect Care: None marital status: Current Living Situation: Spouse Other Information That Helps Us Care for You: No Feels Safe at Home: Yes Safety Concerns: Feels Safe At This Time Smoking Status: Former smoker Years Smoked: 8 Cigarettes Per Day: 1ppd Smoking End Date: 2000 Number of Years Since Quit: 18 Second Hand Exposure: No Hx Alcohol Use: Yes Alcohol type: beer Hx Substance Use: No Review of Systems Review of Systems: All systems reviewed & are unremarkable except as noted in HPI & below Physical Exam Physical Exam: General: NAD, AAO x3, well nourished. HEENT: Normocephalic. Atraumatic. Conjunctiva pink, no scleral icterus. Neck: No carotid bruits, the carotid upstrokes are brisk. No JVD. No HJR Heart: Regular normal S-1 and S-2 no S-3 or S-4 gallop. No murmurs or rub appreciated. PMI is not displaced. No RV heave. Lungs: Clear bilateral without rales , rhonchi, or wheeze. Abdomen: Normal bowel sounds. Soft. Nontender. No masses or organomegaly. No abdominal bruits. Extremities: No clubbing, cyanosis, or edema. Pulses: radial=2/4, Dorsalis pedis =2/4, posterior tibial=2/4. Neuro: Cranial nerves grossly intact. No focal motor deficit. Results & Data Vital Signs (Past 12 Hours) Vital Signs Temp Pulse Pulse Resp BP BP Pulse Ox 11/22/18 07:32 73 11/22/18 07:00 36.7 C 74 19 137/80 97 11/22/18 03:42 36.6 C 71 16 120/71 96 11/22/18 00:14 73 11/22/18 00:00 36.4 C L 73 21 127/73 97 11/21/18 21:13 36.8 C 81 16 147/91 H 96 (1) HTN (hypertension) Hypertension type: essential hypertension Qualified Code(s): I10 - Essential (primary) hypertension
--- NOTE | 2018-11-22 12:00 | Hospitalist Progress Note ---
Date of Service November 22, 2018 Assessment & Plan (1) Left-sided chest pain: Symptom has completely resolved Cardiac markers negative Resting echo shows no acute change from prior Status post cardiac stress test today stress-induced ischemia Appreciate input from cardiology Stable to be discharged home -no changes cardiac meds noted Added H2 jake for possible acid reflux/GERD causing the presenting symptoms scheduled with family physician for hospital follow-up in a week (2) GERD (gastroesophageal reflux disease): Complains of epigastric discomfort, burning sensation Report of improvement of symptoms after receiving 150 mg of Zantac last night Order for p.o. Zantac 150 MG p.o. twice daily Counseling provided to limit caffeine, patient is a non-smoker Avoid spicy food Small frequent meals Aspirin Plavix should be taking in full stomach/after meals PPI/Protonix/omeprazole avoided as patient is on Plavix (3) CAD (coronary artery disease): 01/29/2017 N STEMI -two-vessel CAD 99% mid circumflex and 90% mid LAD with DANA to mid circumflex and mid LAD. Residual moderate to mid circumflex disease managed medically continue ASA, Plavix, Statin, Metoprolol and Lisinopril No evidence of acute coronary event to this admission Cardiac stress test negative for stress-induced ischemia And will be continue with aspirin Plavix statin metoprolol and lisinopril Outpatient regular follow-up with cardiology (4) HTN (hypertension): Blood pressure remains stable continue lisinopril and metoprolol (5) HLD (hyperlipidemia): continue high intensity statin fasting lipid panel shows well-controlled cholesterol with LDL 47, (6) Anxiety: continue lexapro (7) DVT prophylaxis: SCDS/TEDS Pt also on plavix and ASA Disposition: Stable to be discharged home today Subjective Returned from cardiac stress test, negative for stress-induced ischemia Does not have any chest heaviness, chest pain, shortness of breath since admission Does report of some burning sensation in epigastric area, symptoms was improved with Zantac which was given last night Patient is stable to be discharged home Prescription given for p.o. Zantac for possible GERD/acid reflux causing the presenting symptoms PPI/Protonix avoided as patient is on dual antiplatelets with aspirin and Plavix Physical Exam Physical Exam: GENERAL: No sign of distress, HEENT: Sclera nonicteric, pink-purple bilateral equal reactive to light extraocular muscle intact Normal oral mucosa, neck: No JVD, no thyromegaly, trachea midline Lungs: Clear to auscultate, no wheeze or rales Cardiovascular: Regular S1 and S2, no murmur or gallop, no JVD, no lower extremity edema Abdomen: Soft, nontender, bowel sounds active, no hepatosplenomegaly Extremities: No rash or deformity, normal joint, Neuro: No focal neurological deficit, no dysarthria, no facial droop Psych: Alert awake oriented x3: Euthymic Skin: No rash LYMPH NODES: No cervical lymphadenopathy Results & Data Vital Signs (Past 12 Hours) Vital Signs Temp Pulse Pulse Resp BP BP Pulse Ox 11/22/18 11:21 36.9 C 92 H 20 137/81 120/71 97 11/22/18 11:17 36.9 C 92 H 20 137/81 11/22/18 07:32 73 11/22/18 07:00 36.7 C 74 19 137/80 97 11/22/18 03:42 36.6 C 71 16 120/71 96 11/22/18 00:14 73 11/22/18 00:00 36.4 C L 73 21 127/73 97 (1) HTN (hypertension) Hypertension type: essential hypertension Qualified Code(s): I10 - Essential (primary) hypertension
--- NOTE | 2018-11-22 12:07 | Discharge Summary ---
Date of Service November 22, 2018 Admission HPI Per Admitting Provider This is a 48-year-old male with a significant past medical history of CAD status post DANA x2 in mid LAD and circumflex in 01/2017, HTN, HLD, THEODORA s/p surgery, anxiety who presents to [facility] secondary to chest pain x3 days. Patient elicits chest pain began a few days ago, unsure what he was doing at the time. Feels chest pain came on rather gradually. Chest pain located left anterior chest wall with radiation to left shoulder. Describes it as an ache, rated 2/10, tried Pepto-Bismol and nitro without relief. Symptoms do not appear to be exertional or associated with shortness of breath, palpitations. Feels symptoms worsen with food. Pain unchanged with deep breathing. Last meal approximately 3 hours ago was chicken fingers which likely exacerbated symptoms. He opted to present to ER today because he, "just was not feeling quite right." He also notes he developed anxiety after his prior NSTEMI which resulted in him starting Lexapro. After his initial cardiac catheterization in which he required stents, he represented back to the ER secondary to chest pain. He underwent an additional cardiac cath which was otherwise normal with patent stents and was felt to be anxiety per pt. He states he does overall feel anxious today and describes it as like a, "panic attack." Over the past 3 days he has still remained active including using elliptical as well as doing yard work. He did not develop any worsening of symptoms shortness of breath or diaphoresis during these activities. He denies any recent illness, fever, chills, sweats, lightheadedness, dizziness, syncope, orthopnea, PND, Edema, nausea, vomiting, abdominal pain, change in urination. He has been having diarrhea for the past 2 days. He has had approx 30lb weight gain in past year. Principal Diagnosis CHEST PAIN/NONCARDIAC, NEGATIVE CARDIAC STRESS TEST, POSSIBLE GERD, HISTORY OF CORONARY ARTERY DISEASE Discharge Exam GENERAL: No sign of distress, HEENT: Sclera nonicteric, pink-purple bilateral equal reactive to light extraocular muscle intact Normal oral mucosa, neck: No JVD, no thyromegaly, trachea midline Lungs: Clear to auscultate, no wheeze or rales Cardiovascular: Regular S1 and S2, no murmur or gallop, no JVD, no lower extremity edema Abdomen: Soft, nontender, bowel sounds active, no hepatosplenomegaly Extremities: No rash or deformity, normal joint, Neuro: No focal neurological deficit, no dysarthria, no facial droop Psych: Alert awake oriented x3: Euthymic Skin: No rash LYMPH NODES: No cervical lymphadenopathy Discharge Data Allergies Allergy/AdvReac Type Severity Reaction Status Date / Time No Known Allergies Allergy Unverified 02/01/17 11:11 Consultations 11/21/18 19:04 ED Decision to Admit Stat 11/21/18 20:34 Consult Cardiology Routine Hospital Course (1) Left-sided chest pain: Symptom has completely resolved Cardiac markers negative Resting echo shows no acute change from prior Status post cardiac stress test today stress-induced ischemia Appreciate input from cardiology Stable to be discharged home -no changes cardiac meds noted Added H2 jake for possible acid reflux/GERD causing the presenting symptoms scheduled with family physician for hospital follow-up in a week (2) GERD (gastroesophageal reflux disease): Complains of epigastric discomfort, burning sensation Report of improvement of symptoms after receiving 150 mg of Zantac last night Order for p.o. Zantac 150 MG p.o. twice daily Counseling provided to limit caffeine, patient is a non-smoker Avoid spicy food Small frequent meals Aspirin Plavix should be taking in full stomach/after meals PPI/Protonix/omeprazole avoided as patient is on Plavix (3) CAD (coronary artery disease): 01/29/2017 N STEMI -two-vessel CAD 99% mid circumflex and 90% mid LAD with DANA to mid circumflex and mid LAD. Residual moderate to mid circumflex disease managed medically continue ASA, Plavix, Statin, Metoprolol and Lisinopril No evidence of acute coronary event to this admission Cardiac stress test negative for stress-induced ischemia And will be continue with aspirin Plavix statin metoprolol and lisinopril Outpatient regular follow-up with cardiology (4) HTN (hypertension): Blood pressure remains stable continue lisinopril and metoprolol (5) HLD (hyperlipidemia): continue high intensity statin fasting lipid panel shows well-controlled cholesterol with LDL 47, (6) Anxiety: continue lexapro (7) DVT prophylaxis: SCDS/TEDS Pt also on plavix and ASA Disposition: Stable to be discharged home today Total Time Total Time Spent Total Time Spent (In Minutes): 45 minutes Total Time Includes: Examination of the Patient, Discharge Planning and Medication Reconciliation Discharge Plan Discharge Items Patient Disposition: Home - Self-Care Reason For Visit: CHEST PAIN Discharge Diagnosis: Chest pain, noncardiac/history of coronary artery disease Discharge Goals: Decrease discomfort and Diagnostic testing Activity: Resume your previous activity Non-emergency contact: Primary Care Provider Call non-emergency contact if: you have any medication questions Diet: Heart Healthy Addtl Provider Instructions: HOSPITAL FOLLOW-UP: Date & Time 11/25/2018 @ 9:[address] uJan Monroy MD [facility] Prescriptions: New ranitidine HCl 150 mg capsule 150 mg PO BID 30 Days Qty: 60 RF: 0 Continued atorvastatin 80 mg tablet 80 mg PO QPM RF: 0 metoprolol succinate 100 mg tablet extended release 24 hr 50 mg PO BID RF: 0 clopidogrel 75 mg tablet 75 mg PO QAM RF: 0 aspirin 81 mg Tablet,Delayed Release (Dr/Ec) 81 mg PO QAM RF: 0 lisinopril 2.5 mg tablet 2.5 mg PO QAM RF: 0 escitalopram oxalate 5 mg tablet 5 mg PO QPM RF: 0 Stand-Alone Forms: Call Back Authorization, [facility]/Other Patient Handouts: GERD, GERD Lifestyle Changes Discharge Orders: Discharge Order (Routine); Ordered 11/22/18 Ordered By: Malu Serrano Admission Data Admit Date/Time: 11/21/18 19:25 Attending Provider: Malu Serrano Admit Provider: Mike Kc Primary Care Provider: Jorge Manning Other Providers: Jorge Singh Rajendra P. Service: Telemetry Medical Other Interventions: Discharge Summary Assessment (RN) Last Done: 11/22/18 11:21
[2018-11-22] MEDS ORDERED: PERFLUTREN LIPID MICROSPHERE (DEFINITY) IV ONE (12:51)
[2018-11-22] MEDS ORDERED: ESCITALOPRAM OXALATE 10 MG TAB PO SCH (21:00)
[2018-11-22] MEDS ORDERED: ATORVASTATIN 40 MG TAB PO SCH (21:00)
== END 2018-11-22 12:14 | disposition home or self-care (01) ==
LOC: ED 18:07 → 2N 18:07